=== PATIENT | female | born 1955 | race American Indian/Alaskan Native ===

== ENCOUNTER 2017-06-10 19:41 | Inpatient (IN) | payer OTHER ==
[2017-06-10] MEDS ORDERED: DUONEB *Not for PRN Use IH ONE (20:01)
[2017-06-10] MEDS ORDERED: PROVENTIL IH ONE (20:16)
[2017-06-10] MEDS ORDERED: ATROVENT IH ONE (20:16)
[2017-06-10 20:19] LABS: Basophils % (Auto) 0.4 % (0.0-1.8); Eosinophils % (Auto) 0.7 % (0.0-4.3); Hemoglobin 13.8 gm/dl (10.1-14.3); Mean Corpuscular HGB Conc 33 % (30-34); Mean Corpuscular Hemoglobin 30 pg (28-32); Mean Corpuscular Volume 92 fl (79-97); Platelet Count 263 K/mm3 (140-440); Red Blood Count 4.57 M/mm3 (3.65-5.03); White Blood Count 13.4 K/mm3 (4.5-11.0)
--- NOTE | 2017-06-10 20:24 | Emergency Department Report ---
HPI - General Chief Complaint: Dyspnea/Respdistress Time Seen by Provider: 06/10/17 20:08 - [facility] HPI: Room 23 The patient is a 62-year-old female presented with a chief complaint of shortness of breath. The patient has history of asthma and states for the past 2 days she has had shortness of breath and wheezing. Patient also noticed a cough that is productive of white sputum for the past 2 days. Patient admits to subjective fever and rhinorrhea. Patient denies nausea or vomiting. Patient came to the ED via EMS and was administered Solu-Medrol 125 mg IV and magnesium sulfate 2 g IV prior to arrival Location: Lungs Duration: 2 days Quality: Shortness of breath Severity: Moderate Modifying factors: [see above] Context: [see above] Mode of transportation: [not driving] ED Past Medical Hx - Past Medical History Previous Medical History?: Yes Hx Asthma: Yes - Surgical History Past Surgical History?: No - Family History Family history: no significant - Social History Smoking Status: Current Every Day Smoker (1/2 pack per day) Substance Use Type: None ED Review of Systems ROS: Stated complaint: RL Other details as noted in HPI Constitutional: fever (subjective fever) ENT: other (rhinorrhea) Respiratory: cough, shortness of breath, wheezing Gastrointestinal: denies: nausea, vomiting Physical Exam - Physical Exam Vital Signs: Vital Signs 06/10/17 06/10/17 06/10/17 19:48 20:07 20:08 Temperature 98 F Pulse Rate 114 H 111 H 114 H Pulse Rate [ 111 H Left Lower Lobe ] Respiratory 26 H 24 24 Rate Respiratory 20 Rate [Left Lower Lobe] Blood Pressure 135/82 O2 Sat by Pulse 96 99 99 Oximetry 06/10/17 20:10 Temperature Pulse Rate 114 H Pulse Rate [ Left Lower Lobe ] Respiratory 22 Rate Respiratory Rate [Left Lower Lobe] Blood Pressure O2 Sat by Pulse 98 Oximetry Physical Exam: GENERAL: The patient is well-developed well-nourished female lying on stretcher receiving nebulizer appearing to be in moderate respiratory distress. [] HEENT: Normocephalic. Atraumatic. Extraocular motions are intact. Patient has moist mucous membranes. NECK: Supple. Trachea midline CHEST/LUNGS: Diffuse wheezing HEART/CARDIOVASCULAR: Regular. There is tachycardia. There is no gallop rub or murmur. ABDOMEN: Abdomen is soft, nontender. Patient has normal bowel sounds. There is no abdominal distention. SKIN: There is no rash. There is no diaphoresis. NEURO: The patient is awake, alert, and oriented. The patient is cooperative. The patient has normal speech MUSCULOSKELETAL: There is no evidence of acute injury. ED Course Vital Signs 06/10/17 06/10/17 06/10/17 19:48 20:07 20:08 Temperature 98 F Pulse Rate 114 H 111 H 114 H Pulse Rate [ 111 H Left Lower Lobe ] Respiratory 26 H 24 24 Rate Respiratory 20 Rate [Left Lower Lobe] Blood Pressure 135/82 O2 Sat by Pulse 96 99 99 Oximetry 06/10/17 20:10 Temperature Pulse Rate 114 H Pulse Rate [ Left Lower Lobe ] Respiratory 22 Rate Respiratory Rate [Left Lower Lobe] Blood Pressure O2 Sat by Pulse 98 Oximetry - Reevaluation(s) Reevaluation #1: 06/10/17 20:44 Patient states she feels slightly improved but is still tight. Reevaluation #2: 06/10/17 21:42 Patient still exhibits tight wheezing Reevaluation #3: 06/10/17 22:31 Patient continues to wheeze with increased work of breathing. I will admit the patient to the hospital for further treatment ED Medical Decision Making - Lab Data Result diagrams: 06/10/17 19:57 06/10/17 19:57 Laboratory Tests 06/10/17 06/10/17 19:57 19:57 WBC 13.4 H RBC 4.57 Hgb 13.8 Hct 42.0 MCV 92 MCH 30 MCHC 33 RDW 16.0 H Plt Count 263 Lymph % (Auto) 16.8 [place] % (Auto) 7.2 Eos % (Auto) 0.7 Baso % (Auto) 0.4 Lymph # 2.3 [place]ts # 1.0 H Eos # 0.1 Baso # 0.1 Seg Neutrophils % 74.9 H Seg Neutrophils # 10.0 H Sodium 140 Potassium 3.6 Chloride 98.0 Carbon Dioxide 24 Anion Gap 22 BUN 10 Creatinine 0.3 L Estimated GFR > 60 BUN/Creatinine Ratio 33 Glucose 135 H Calcium 9.0 Troponin T < 0.010 Influenza negative - EKG Data -: EKG Interpreted by Me EKG shows normal: sinus rhythm Rate: tachycardia (108 bpm) - EKG Data When compared to previous EKG there are: previous EKG unavailable Interpretation: nonspecific ST-T wave yee - Radiology Data Radiology results: image reviewed (chest x-ray) interpreted by me: Chest x-ray-no definite focal infiltrates, no pneumothorax - Differential Diagnosis COPD exacerbation, asthma exacerbation, pneumonia, bronchitis Critical care attestation.: If time is entered above; I have spent that time in minutes in the direct care of this critically ill patient, excluding procedure time. ED Disposition Clinical Impression: Shortness of breath, Acute asthma exacerbation, Acute bronchitis Disposition: OP ADMIT IP TO THIS HOSP Is pt being admited?: Yes Does the pt Need Aspirin: No Condition: Fair Instructions: Acute Bronchitis (ED) Referrals: PRIMARY CARE, [Primary Care Provider] - 3-5 Days Time of Disposition: 22:32 (hospitalist paged)
[2017-06-10 20:29] LABS: Anion Gap 22 mmol/L; BUN/Creatinine Ratio 33; Blood Urea Nitrogen 10 mg/dL (7-17); Carbon Dioxide 24 mmol/L (22-30); Glucose 135 mg/dL (65-100); Potassium 3.6 mmol/L (3.6-5.0); Sodium 140 mmol/L (137-145)
[2017-06-10] MEDS ORDERED: ZOFRAN ONE (21:14)
--- NOTE | 2017-06-10 21:37 | XRay Report ---
FINAL REPORT EXAM: XR CHEST 1V AP HISTORY: Shortness of breath TECHNIQUE: AP portable view of the chest PRIORS: None. FINDINGS: Lines, tubes, and devices: N/A Lungs and pleura: Trachea is normal in position. Lungs are clear of infiltrate, pleural effusion, vascular congestion, or pneumothorax. Cardiomediastinal silhouette: Cardiac and mediastinal silhouettes are unremarkable. Calcification of the aorta is seen. Other: Bony structures are intact. IMPRESSION: No acute cardiopulmonary process seen.
[2017-06-10] MEDS ORDERED: XOPENEX IH ONE (22:31)
[2017-06-10] MEDS ORDERED: DULCOLAX PR PRN (23:22)
[2017-06-10] MEDS ORDERED: MILK OF MAGNESIA PO PRN (23:22)
[2017-06-10] MEDS ORDERED: ZOFRAN IV PRN (23:22)
--- NOTE | 2017-06-10 23:24 | History and Physical Report ---
History of Present Illness Date of examination: 06/10/17 History of present illness: 62-year-old woman with a history of asthma comes to the emergency room complaining of shortness of breath and cough productive of white phlegm for 2 days. She has been using nebulizer treatments without much improvement Review Of Systems: Constitutional: no weight loss Ears, eyes, nose, mouth and throat: no nasal congestion, no nasal discharge, no sinus pressure, blurry vision, diplopia Neck: No neck pain or rigidity. Cardiovascular: chest pain, orthopnea, palpitations Respiratory: +shortness of breath, cough Gastrointestinal: no abdominal pain, hematochezia Genitourinary : no dysuria, frequency , hematuria Musculoskeletal: no muscle ache Integumentary: no rash, no pruritis Neurological: no parathesias, focal weakness Endocrine: no cold or heat intolerance, no polyuria or polydipsia Hematologic/Lymphatic: no easy bruising, no easy bleeding, no gland swelling Allergic/Immunologic: no urticaria, no angioedema. PAST MEDICAL HISTORY:asthma PAST SURGICAL HISTORY:none FAMILY HISTORY:asthma SOCIAL HISTORY: Smoked 1 pack a day, no alcohol or drug Medications and Allergies Allergies Allergy/AdvReac Type Severity Reaction Status Date / Time No Known Allergies Allergy Unverified 06/10/17 19:46 Exam - Physical Exam Narrative exam: Gen. appearance: Patient lying in bed in no acute distress HEENT: Normocephalic/atraumatic, pupils equal round reactive to light, extra alkaline movement intact, no scleral icterus, no JVD or thyromegaly or nodule, neck is supple, mucous membrane moist, no erythema or exudate Heart: S1-S2, regular rate and rhythm Lungs: wheezing bilateral breathing comfortable Abdomen: Positive bowel sounds, nontender, nondistended, no organomegaly Extremities: No edema, cyanosis, clubbing Neuro:: Oriented 3 , cranial nerves II-12 intact, speech, motor intact Skin: No rash, nodules, warm dry - Constitutional Vitals: Temp Pulse Resp BP Pulse Ox 98 F 118 H 20 135/82 98 06/10/17 19:48 06/10/17 22:50 06/10/17 22:50 06/10/17 19:48 06/10/17 20:14 Results - Labs CBC & Chem 7: 06/10/17 19:57 06/10/17 19:57 Labs: Abnormal lab results 06/10/17 06/10/17 Range/Units 19:57 19:57 WBC 13.4 H (4.5-11.0) K/mm3 RDW 16.0 H (13.2-15.2) % [place] # 1.0 H (0.0-0.8) K/mm3 Seg Neutrophils % 74.9 H (40.0-70.0) % Seg Neutrophils # 10.0 H (1.8-7.7) K/mm3 Creatinine 0.3 L (0.7-1.2) mg/dL Glucose 135 H (65-100) mg/dL - Imaging and Cardiology Chest x-ray: image reviewed Assessment and Plan Assessment Asthma exacerbation, acute Plan Admit to medicine Start IV steroids, nebulizer treatments, DVT prophylaxis
[2017-06-11] MEDS: TYLENOL PO PRN ×3 (02:02→19:44)
[2017-06-11] MEDS: DUONEB *Not for PRN Use IH SCH ×4 (02:16→20:02)
[2017-06-11 04:54] LABS: Hematocrit 40.5 % (30.3-42.9); Hemoglobin 13.3 gm/dl (10.1-14.3); Mean Corpuscular HGB Conc 33 % (30-34); Mean Corpuscular Hemoglobin 30 pg (28-32); Mean Corpuscular Volume 91 fl (79-97); Platelet Count 250 K/mm3 (140-440); Red Blood Count 4.43 M/mm3 (3.65-5.03); Red Cell Distribution Width 15.3 % (13.2-15.2); White Blood Count 8.4 K/mm3 (4.5-11.0)
[2017-06-11 05:14] LABS: Anion Gap 20 mmol/L; BUN/Creatinine Ratio 25; Blood Urea Nitrogen 10 mg/dL (7-17); Carbon Dioxide 27 mmol/L (22-30); Chloride 100.1 mmol/L (98-107); Glucose 164 mg/dL (65-100); Potassium 3.7 mmol/L (3.6-5.0); Sodium 143 mmol/L (137-145)
[2017-06-11 06:31] LABS: Basophils % (Manual) 0 % (0.0-1.8); Blastocytes % (Manual) 0 %; Eosinophils % (Manual) 0 % (0.0-4.3); Total Cells Counted Percent 0
[2017-06-11 06:32] LABS: Anisocytosis 1+; Diff Status Complete; Giant Platelets Few
[2017-06-11] MEDS: LOVENOX SUB-Q SCH (09:56)
--- NOTE | 2017-06-11 10:30 | Progress Note ---
Assessment and Plan Assessment and plan: Patient is 62-year-old woman with history of asthma and tobacco dependency presents with shortness of breath and cough. -Acute hypoxic respiratory failure on 2 L oxygen which is new: Wean off oxygen -Acute asthma exacerbation without a formal diagnosis of COPD but possibility: Treat with IV steroids, nebs, antibiotics -Tobacco dependency: Counseling done History Interval history: Patient seen and examined. Follow up on sob which is still present. she is on 2 liters of o2 which is new for her. pulse ox at rest with o2 only 91% Hospitalist Physical - Physical exam Narrative exam: GEN: Thin frail BMI 17 NAD, AWAKE, ALERT, ORIENTATED x 3 HEENT: NCAT, EOMI, PERRL, OP Clear NECK: supple, no adenopathy, no thyromegaly, no JVD CVS/HEART: RRR, NORMAL S1S2, NO JVD, pulses present bilaterally CHEST/LUNGS: Bilateral rhonchi, Symmetrical chest expansion, severely reduced air entry bilaterally GI/Abdomen: soft, NTND, good bowel sounds, no guarding or rebound /Bladder: no suprapubic tenderness, no CVA or paraspinal tenderness EXT/Skin: no c/c/e, no obvious rash MSK: FROM x 4 Neuro: CN 2-12 grossly intact, no new focal deficits Psych: calm - Constitutional Vitals: Temp Pulse Resp BP Pulse Ox 98.0 F 85 16 97/55 97 06/11/17 08:38 06/11/17 08:38 06/11/17 08:38 06/11/17 08:38 06/11/17 08:38 Results - Labs CBC & Chem 7: 06/11/17 04:33 06/11/17 04:33 Labs: Laboratory Last Values WBC 8.4 K/mm3 (4.5-11.0) 06/11/17 04:33 RBC 4.43 M/mm3 (3.65-5.03) 06/11/17 04:33 Hgb 13.3 gm/dl (10.1-14.3) 06/11/17 04:33 Hct 40.5 % (30.3-42.9) 06/11/17 04:33 MCV 91 fl (79-97) 06/11/17 04:33 MCH 30 pg (28-32) 06/11/17 04:33 MCHC 33 % (30-34) 06/11/17 04:33 RDW 15.3 % (13.2-15.2) H 06/11/17 04:33 Plt Count 250 K/mm3 (140-440) 06/11/17 04:33 Lymph % (Auto) 16.8 % (13.4-35.0) 06/10/17 19:57 [place] % (Auto) 7.2 % (0.0-7.3) 06/10/17 19:57 Eos % (Auto) 0.7 % (0.0-4.3) 06/10/17 19:57 Baso % (Auto) 0.4 % (0.0-1.8) 06/10/17 19:57 Lymph # 2.3 K/mm3 (1.2-5.4) 06/10/17 19:57 [place] # 1.0 K/mm3 (0.0-0.8) H 06/10/17 19:57 Eos # 0.1 K/mm3 (0.0-0.4) 06/10/17 19:57 Baso # 0.1 K/mm3 (0.0-0.1) 06/10/17 19:57 Add Manual Diff Complete 06/11/17 04:33 Total Counted 100 06/11/17 04:33 Seg Neutrophils % Railway Signal Technician 06/11/17 04:33 Seg Neuts % (Manual) 89.0 % (40.0-70.0) H 06/11/17 04:33 Band Neutrophils % 8.0 % 06/11/17 04:33 Lymphocytes % (Manual) 3.0 % (13.4-35.0) L 06/11/17 04:33 Reactive Lymphs % (Man) 0 % 06/11/17 04:33 Monocytes % (Manual) 0 % (0.0-7.3) 06/11/17 04:33 Eosinophils % (Manual) 0 % (0.0-4.3) 06/11/17 04:33 Basophils % (Manual) 0 % (0.0-1.8) 06/11/17 04:33 Metamyelocytes % 0 % 06/11/17 04:33 Myelocytes % 0 % 06/11/17 04:33 Promyelocytes % 0 % 06/11/17 04:33 Blast Cells % 0 % 06/11/17 04:33 Nucleated RBC % Not Reportable 06/11/17 04:33 Seg Neutrophils # 10.0 K/mm3 (1.8-7.7) H 06/10/17 19:57 Seg Neutrophils # Man 7.5 K/mm3 (1.8-7.7) 06/11/17 04:33 Band Neutrophils # 0.7 K/mm3 06/11/17 04:33 Lymphocytes # (Manual) 0.3 K/mm3 (1.2-5.4) L 06/11/17 04:33 Abs React Lymphs (Man) 0.0 K/mm3 06/11/17 04:33 Monocytes # (Manual) 0.0 K/mm3 (0.0-0.8) 06/11/17 04:33 Eosinophils # (Manual) 0.0 K/mm3 (0.0-0.4) 06/11/17 04:33 Basophils # (Manual) 0.0 K/mm3 (0.0-0.1) 06/11/17 04:33 Metamyelocytes # 0.0 K/mm3 06/11/17 04:33 Myelocytes # 0.0 K/mm3 06/11/17 04:33 Promyelocytes # 0.0 K/mm3 06/11/17 04:33 Blast Cells # 0.0 K/mm3 06/11/17 04:33 WBC Morphology Not Reportable 06/11/17 04:33 Hypersegmented Neuts Not Reportable 06/11/17 04:33 Hyposegmented Neuts Not Reportable 06/11/17 04:33 Hypogranular Neuts Not Reportable 06/11/17 04:33 Smudge Cells Not Reportable 06/11/17 04:33 Toxic Granulation Not Reportable 06/11/17 04:33 Toxic Vacuolation Not Reportable 06/11/17 04:33 Dohle Bodies Not Reportable 06/11/17 04:33 Pelger-Huet Anomaly Not Reportable 06/11/17 04:33 Opal Rods Not Reportable 06/11/17 04:33 Platelet Estimate Appears normal 06/11/17 04:33 Clumped Platelets Not Reportable 06/11/17 04:33 Plt Clumps, EDTA Not Reportable 06/11/17 04:33 Large Platelets Not Reportable 06/11/17 04:33 Giant Platelets Few 06/11/17 04:33 Platelet Satelliting Not Reportable 06/11/17 04:33 Plt Morphology Comment Not Reportable 06/11/17 04:33 RBC Morphology Not Reportable 06/11/17 04:33 Dimorphic RBCs Not Reportable 06/11/17 04:33 Polychromasia Not Reportable 06/11/17 04:33 Hypochromasia Not Reportable 06/11/17 04:33 Poikilocytosis Not Reportable 06/11/17 04:33 Anisocytosis 1+ 06/11/17 04:33 Microcytosis Not Reportable 06/11/17 04:33 Macrocytosis Not Reportable 06/11/17 04:33 Spherocytes Not Reportable 06/11/17 04:33 Pappenheimer Bodies Not Reportable 06/11/17 04:33 Sickle Cells Not Reportable 06/11/17 04:33 Target Cells Not Reportable 06/11/17 04:33 Tear Drop Cells Not Reportable 06/11/17 04:33 Ovalocytes Not Reportable 06/11/17 04:33 Helmet Cells Not Reportable 06/11/17 04:33 [place] Bodies Not Reportable 06/11/17 04:33 [place] Rings Not Reportable 06/11/17 04:33 [place] Cells Not Reportable 06/11/17 04:33 Bite Cells Not Reportable 06/11/17 04:33 Crenated Cell Not Reportable 06/11/17 04:33 Elliptocytes Not Reportable 06/11/17 04:33 Acanthocytes (Spur) Not Reportable 06/11/17 04:33 Rouleaux Not Reportable 06/11/17 04:33 Hemoglobin C Crystals Not Reportable 06/11/17 04:33 Schistocytes Not Reportable 06/11/17 04:33 Malaria parasites Not Reportable 06/11/17 04:33 Joel Bodies Not Reportable 06/11/17 04:33 Hem Pathologist Commnt No 06/11/17 04:33 Sodium 143 mmol/L (137-145) 06/11/17 04:33 Potassium 3.7 mmol/L (3.6-5.0) 06/11/17 04:33 Chloride 100.1 mmol/L (98-107) 06/11/17 04:33 Carbon Dioxide 27 mmol/L (22-30) 06/11/17 04:33 Anion Gap 20 mmol/L 06/11/17 04:33 BUN 10 mg/dL (7-17) 06/11/17 04:33 Creatinine 0.4 mg/dL (0.7-1.2) L 06/11/17 04:33 Estimated GFR > 60 ml/min 06/11/17 04:33 BUN/Creatinine Ratio 25 % 06/11/17 04:33 Glucose 164 mg/dL (65-100) H 06/11/17 04:33 Calcium 9.0 mg/dL (8.4-10.2) 06/11/17 04:33 Troponin T < 0.010 ng/mL (0.00-0.029) 06/10/17 19:57
[2017-06-12] MEDS: DUONEB *Not for PRN Use IH SCH ×4 (01:31→20:14)
[2017-06-12 05:26] LABS: Hematocrit 37.5 % (30.3-42.9); Hemoglobin 12.6 gm/dl (10.1-14.3); Mean Corpuscular HGB Conc 34 % (30-34); Mean Corpuscular Hemoglobin 31 pg (28-32); Mean Corpuscular Volume 91 fl (79-97); Platelet Count 255 K/mm3 (140-440); Red Blood Count 4.11 M/mm3 (3.65-5.03); Red Cell Distribution Width 15.5 % (13.2-15.2); White Blood Count 18.6 K/mm3 (4.5-11.0)
[2017-06-12 05:51] LABS: Alanine Aminotransferase 14 units/L (7-56); Albumin/Globulin Ratio 1.4 %; Alkaline Phosphatase 70 units/L (35-129); Anion Gap 16 mmol/L; BUN/Creatinine Ratio 43; Bilirubin,Total < 0.20 mg/dL (0.1-1.2); Blood Urea Nitrogen 17 mg/dL (7-17); Calcium 9.3 mg/dL (8.4-10.2); Carbon Dioxide 28 mmol/L (22-30); Chloride 104.2 mmol/L (98-107); Glucose 139 mg/dL (65-100); Potassium 3.6 mmol/L (3.6-5.0); Sodium 145 mmol/L (137-145); Total Protein 6.8 g/dL (6.3-8.2)
[2017-06-12] MEDS: LOVENOX SUB-Q SCH (11:37)
--- NOTE | 2017-06-12 11:52 | Progress Note ---
Assessment and Plan Assessment and plan: Patient is 62-year-old woman with history of asthma and tobacco dependency presents with shortness of breath and cough. -Acute hypoxic respiratory failure on 2 L oxygen which is new: Wean off oxygen if possible -Acute asthma exacerbation without a formal diagnosis of COPD but possibility: Treat with IV steroids, nebs, antibiotics -Tobacco dependency: Counseling done off o2 at rest but needs pulse ox with activity. Patient tearful to use O2 because she may lose her job; so she really hesitant on checking pulse ox/O2 with activity. History Interval history: Patient seen and examined. Follow up on sob which is still present. she is on 2 liters of o2 which is new for her. pulse ox at rest with o2 only 91% Hospitalist Physical - Physical exam Narrative exam: GEN: Thin frail BMI 17 NAD, AWAKE, ALERT, ORIENTATED x 3 HEENT: NCAT, EOMI, PERRL, OP Clear NECK: supple, no adenopathy, no thyromegaly, no JVD CVS/HEART: RRR, NORMAL S1S2, NO JVD, pulses present bilaterally CHEST/LUNGS: Bilateral rhonchi, Symmetrical chest expansion, severely reduced air entry bilaterally GI/Abdomen: soft, NTND, good bowel sounds, no guarding or rebound /Bladder: no suprapubic tenderness, no CVA or paraspinal tenderness EXT/Skin: no c/c/e, no obvious rash MSK: FROM x 4 Neuro: CN 2-12 grossly intact, no new focal deficits Psych: calm - Constitutional Vitals: Temp Pulse Resp BP Pulse Ox 97.9 F 95 H 18 99/68 92 06/12/17 07:41 06/12/17 07:45 06/12/17 07:45 06/12/17 07:41 06/12/17 10:00 Results - Labs CBC & Chem 7: 06/12/17 05:07 06/12/17 05:07 Labs: Laboratory Last Values WBC 18.6 K/mm3 (4.5-11.0) H 06/12/17 05:07 RBC 4.11 M/mm3 (3.65-5.03) 06/12/17 05:07 Hgb 12.6 gm/dl (10.1-14.3) 06/12/17 05:07 Hct 37.5 % (30.3-42.9) 06/12/17 05:07 MCV 91 fl (79-97) 06/12/17 05:07 MCH 31 pg (28-32) 06/12/17 05:07 MCHC 34 % (30-34) 06/12/17 05:07 RDW 15.5 % (13.2-15.2) H 06/12/17 05:07 Plt Count 255 K/mm3 (140-440) 06/12/17 05:07 Lymph % (Auto) 16.8 % (13.4-35.0) 06/10/17 19:57 [place] % (Auto) 7.2 % (0.0-7.3) 06/10/17 19:57 Eos % (Auto) 0.7 % (0.0-4.3) 06/10/17 19:57 Baso % (Auto) 0.4 % (0.0-1.8) 06/10/17 19:57 Lymph # 2.3 K/mm3 (1.2-5.4) 06/10/17 19:57 [place] # 1.0 K/mm3 (0.0-0.8) H 06/10/17 19:57 Eos # 0.1 K/mm3 (0.0-0.4) 06/10/17 19:57 Baso # 0.1 K/mm3 (0.0-0.1) 06/10/17 19:57 Add Manual Diff Complete 06/11/17 04:33 Total Counted 100 06/11/17 04:33 Seg Neutrophils % Medical And Health Services Manager 06/11/17 04:33 Seg Neuts % (Manual) 89.0 % (40.0-70.0) H 06/11/17 04:33 Band Neutrophils % 8.0 % 06/11/17 04:33 Lymphocytes % (Manual) 3.0 % (13.4-35.0) L 06/11/17 04:33 Reactive Lymphs % (Man) 0 % 06/11/17 04:33 Monocytes % (Manual) 0 % (0.0-7.3) 06/11/17 04:33 Eosinophils % (Manual) 0 % (0.0-4.3) 06/11/17 04:33 Basophils % (Manual) 0 % (0.0-1.8) 06/11/17 04:33 Metamyelocytes % 0 % 06/11/17 04:33 Myelocytes % 0 % 06/11/17 04:33 Promyelocytes % 0 % 06/11/17 04:33 Blast Cells % 0 % 06/11/17 04:33 Nucleated RBC % Not Reportable 06/11/17 04:33 Seg Neutrophils # 10.0 K/mm3 (1.8-7.7) H 06/10/17 19:57 Seg Neutrophils # Man 7.5 K/mm3 (1.8-7.7) 06/11/17 04:33 Band Neutrophils # 0.7 K/mm3 06/11/17 04:33 Lymphocytes # (Manual) 0.3 K/mm3 (1.2-5.4) L 06/11/17 04:33 Abs React Lymphs (Man) 0.0 K/mm3 06/11/17 04:33 Monocytes # (Manual) 0.0 K/mm3 (0.0-0.8) 06/11/17 04:33 Eosinophils # (Manual) 0.0 K/mm3 (0.0-0.4) 06/11/17 04:33 Basophils # (Manual) 0.0 K/mm3 (0.0-0.1) 06/11/17 04:33 Metamyelocytes # 0.0 K/mm3 06/11/17 04:33 Myelocytes # 0.0 K/mm3 06/11/17 04:33 Promyelocytes # 0.0 K/mm3 06/11/17 04:33 Blast Cells # 0.0 K/mm3 06/11/17 04:33 WBC Morphology Not Reportable 06/11/17 04:33 Hypersegmented Neuts Not Reportable 06/11/17 04:33 Hyposegmented Neuts Not Reportable 06/11/17 04:33 Hypogranular Neuts Not Reportable 06/11/17 04:33 Smudge Cells Not Reportable 06/11/17 04:33 Toxic Granulation Not Reportable 06/11/17 04:33 Toxic Vacuolation Not Reportable 06/11/17 04:33 Dohle Bodies Not Reportable 06/11/17 04:33 Pelger-Huet Anomaly Not Reportable 06/11/17 04:33 Opal Rods Not Reportable 06/11/17 04:33 Platelet Estimate Appears normal 06/11/17 04:33 Clumped Platelets Not Reportable 06/11/17 04:33 Plt Clumps, EDTA Not Reportable 06/11/17 04:33 Large Platelets Not Reportable 06/11/17 04:33 Giant Platelets Few 06/11/17 04:33 Platelet Satelliting Not Reportable 06/11/17 04:33 Plt Morphology Comment Not Reportable 06/11/17 04:33 RBC Morphology Not Reportable 06/11/17 04:33 Dimorphic RBCs Not Reportable 06/11/17 04:33 Polychromasia Not Reportable 06/11/17 04:33 Hypochromasia Not Reportable 06/11/17 04:33 Poikilocytosis Not Reportable 06/11/17 04:33 Anisocytosis 1+ 06/11/17 04:33 Microcytosis Not Reportable 06/11/17 04:33 Macrocytosis Not Reportable 06/11/17 04:33 Spherocytes Not Reportable 06/11/17 04:33 Pappenheimer Bodies Not Reportable 06/11/17 04:33 Sickle Cells Not Reportable 06/11/17 04:33 Target Cells Not Reportable 06/11/17 04:33 Tear Drop Cells Not Reportable 06/11/17 04:33 Ovalocytes Not Reportable 06/11/17 04:33 Helmet Cells Not Reportable 06/11/17 04:33 [place] Bodies Not Reportable 06/11/17 04:33 [place] Rings Not Reportable 06/11/17 04:33 [place] Cells Not Reportable 06/11/17 04:33 Bite Cells Not Reportable 06/11/17 04:33 Crenated Cell Not Reportable 06/11/17 04:33 Elliptocytes Not Reportable 06/11/17 04:33 Acanthocytes (Spur) Not Reportable 06/11/17 04:33 Rouleaux Not Reportable 06/11/17 04:33 Hemoglobin C Crystals Not Reportable 06/11/17 04:33 Schistocytes Not Reportable 06/11/17 04:33 Malaria parasites Not Reportable 06/11/17 04:33 Joel Bodies Not Reportable 06/11/17 04:33 Hem Pathologist Commnt No 06/11/17 04:33 Sodium 145 mmol/L (137-145) 06/12/17 05:07 Potassium 3.6 mmol/L (3.6-5.0) 06/12/17 05:07 Chloride 104.2 mmol/L (98-107) 06/12/17 05:07 Carbon Dioxide 28 mmol/L (22-30) 06/12/17 05:07 Anion Gap 16 mmol/L 06/12/17 05:07 BUN 17 mg/dL (7-17) 06/12/17 05:07 Creatinine 0.4 mg/dL (0.7-1.2) L 06/12/17 05:07 Estimated GFR > 60 ml/min 06/12/17 05:07 BUN/Creatinine Ratio 43 % 06/12/17 05:07 Glucose 139 mg/dL (65-100) H 06/12/17 05:07 Calcium 9.3 mg/dL (8.4-10.2) 06/12/17 05:07 Total Bilirubin < 0.20 mg/dL (0.1-1.2) 06/12/17 05:07 AST 18 units/L (5-40) 06/12/17 05:07 ALT 14 units/L (7-56) 06/12/17 05:07 Alkaline Phosphatase 70 units/L (35-129) 06/12/17 05:07 Troponin T < 0.010 ng/mL (0.00-0.029) 06/10/17 19:57 Total Protein 6.8 g/dL (6.3-8.2) 06/12/17 05:07 Albumin 4.0 g/dL (3.9-5) 06/12/17 05:07 Albumin/Globulin Ratio 1.4 % 06/12/17 05:07
[2017-06-13] MEDS: DUONEB *Not for PRN Use IH SCH ×3 (02:18→13:29)
[2017-06-13 08:52] VITALS: BP 116/75
[2017-06-13] MEDS: LOVENOX SUB-Q SCH (09:56)
--- NOTE | 2017-06-13 12:43 | Discharge Summary ---
Providers - Providers Date of Admission: 06/10/17 23:22 Date of discharge: 06/13/17 Attending physician: WILL HOLM 06/11/17 10:31 Consult to Dietitian/Nutrition [CONS] Routine Physician Instructions: Reason For Exam: Reason for Consult: Malnutrition Primary care physician: QUITLINE COUNSELOR Hospitalization Condition: Stable Hospital course: Patient is 62-year-old woman with history of asthma and tobacco dependency presents with shortness of breath and cough. -Acute hypoxic respiratory failure on 2 L oxygen which is new: Weaned off oxygen -Acute asthma exacerbation without a formal diagnosis of COPD but possibility: Treat with IV steroids, nebs, start abx prior to discharge -Tobacco dependency: Counseling done Disposition: DC-01 TO HOME OR SELFCARE Time spent for discharge: 36 minutes Core Measure Documentation - Palliative Care Palliative Care/ Comfort Measures: Not Applicable - Core Measures Any of the following diagnoses?: none - VTE Discharge Requirements Deep Vein Thrombosis/Pulmonary Embolism Present on Admission: No Has pt received <5 days of overlap therapy or INR<2.0: No Anticoagulant overlap therapy prescribed at discharge: No Contraindication No Overlap Therapy order at DC: Not Indicated Exam - Physical Exam Narrative exam: GEN: Thin frail BMI 17 NAD, AWAKE, ALERT, ORIENTATED x 3 HEENT: NCAT, EOMI, PERRL, OP Clear NECK: supple, no adenopathy, no thyromegaly, no JVD CVS/HEART: RRR, NORMAL S1S2, NO JVD, pulses present bilaterally CHEST/LUNGS: Bilateral rhonchi, Symmetrical chest expansion, severely reduced air entry bilaterally GI/Abdomen: soft, NTND, good bowel sounds, no guarding or rebound /Bladder: no suprapubic tenderness, no CVA or paraspinal tenderness EXT/Skin: no c/c/e, no obvious rash MSK: FROM x 4 Neuro: CN 2-12 grossly intact, no new focal deficits Psych: calm - Constitutional Vitals: Temp Pulse Resp BP Pulse Ox 98.2 F 76 18 116/75 89 06/13/17 07:38 06/13/17 07:46 06/13/17 07:46 06/13/17 07:38 06/13/17 07:38 Plan Activity: other (no strenous activity until cleared by pcp) Diet: regular Special Instructions: smoking cessation Durable Medical Equipment Needed Upon Discharge: Nebulizer Additional Instructions: The first available appointment to see the shipping hand, Dr. Spence to test for COPD. If you are unable to afford medication, make sure you get your antibiotic, steriods and albuterol. Follow up with: PRIMARY CARE, [Primary Care Provider] - 3-5 Days NEGRITA SPENCE MD [Staff Physician] - 7 Days Prescriptions: ALBUTEROL Inhaler [ProAir HFA Inhaler] 2 puff IH QID PRN #1 unit PRN Reason: Shortness Of Breath Arformoterol Nebu [Brovana Nebu] 15 mcg IH Q12HR #7 day Budesonide [Pulmicort Respules] 0.5 mg IH Q12HR #7 day Ipratropium/Albuterol Sulfate [DUONEB *Not for PRN Use*] 1 ampul IH Q6HRT PRN # 30 day PRN Reason: Shortness Of Breath Levofloxacin [Levaquin TAB] 750 mg PO Q24HR #6 day predniSONE [Deltasone] 1 dose PO QDAY #20 day
[2017-06-13] MEDS ORDERED: LEVAQUIN PO SCH (13:00)
== END 2017-06-13 16:00 | disposition home or self-care (01) | DRG 189 ==
LOC: ED 19:41 → 3A 23:22
PROVIDERS: ADMIT Internal Medicine; ATTEND Internal Medicine
DX: J96.01 Acute respiratory failure with hypoxia (principal); J45.901 Unspecified asthma with (acute) exacerbation; F17.200 Nicotine dependence, unspecified, uncomplicated; J20.9 Acute bronchitis, unspecified; Z82.5 Family history of asthma and other chronic lower respiratory diseases
CPT/HCPCS: 36415; 71010; 80048; 80053; 84484; 85007; 85025; 85027; 87400; 93005; 93010; 94640; 94760; 99406; J1650; J2405; J2920; J2930

== ENCOUNTER 2019-01-31 20:24 | Emergency (ER) | payer SELFPAY ==
--- NOTE | 2019-01-31 20:39 | Emergency Department Report ---
Blank Doc - Documentation Documentation: This is a 63-year-old female that presents with chest pain and SOB. HX of COPD. This initial assessment/diagnostic orders/clinical plan/treatment(s) is/are subject to change based on patient's health status, clinical progression and re- assessment by fellow clinical providers in the ED. Further treatment and workup at subsequent clinical providers discretion. Patient/guardians urged not to elope from the ED as their condition may be serious if not clinically assessed and managed. Initial orders include: 1- Patient sent to MAIN ED for further evaluation and treatment 2- labs 3- CXR 4- EKG
[2019-01-31 21:22] LABS: Basophils # (Auto) 0.1 K/mm3 (0.0-0.1); Basophils % (Auto) 0.9 % (0.0-1.8); Eosinophils # (Auto) 0.5 K/mm3 (0.0-0.4); Hematocrit 39.3 % (30.3-42.9); Hemoglobin 13.6 gm/dl (10.1-14.3); Lymphocytes % (Auto) 22.3 % (13.4-35.0); Mean Corpuscular HGB Conc 35 % (30-34); Mean Corpuscular Volume 86 fl (79-97); Monocytes # (Auto) 0.6 K/mm3 (0.0-0.8); Platelet Count 331 K/mm3 (140-440); Red Blood Count 4.57 M/mm3 (3.65-5.03); Red Cell Distribution Width 14.9 % (13.2-15.2)
[2019-01-31 21:33] LABS: INR 1.08 (0.87-1.13)
[2019-01-31 21:34] LABS: Partial Thromboplastin Time 32.1 Sec. (24.2-36.6)
[2019-01-31] MEDS ORDERED: SOLU-Medrol IV ONE (21:41)
[2019-01-31] MEDS ORDERED: ATROVENT IH ONE (21:41)
[2019-01-31] MEDS ORDERED: PROVENTIL IH ONE (21:41)
--- NOTE | 2019-01-31 21:42 | XRay Report ---
CHEST PA AND LATERAL VIEWS INDICATION: Chest Pain. COMPARISON: None FINDINGS: Support devices: None Heart: Normal Lungs/Pleura: Lungs are hyperinflated but clear of acute disease. No pleural fluid IMPRESSION: 1. Emphysema but no acute superimposed disease. Signer Name: Jose Flores MD Signed: 01/31/2019 9:37 PM Workstation Name: [id number]
[2019-01-31 21:44] LABS: BUN/Creatinine Ratio 30; Blood Urea Nitrogen 12 mg/dL (7-17); Calcium 9.3 mg/dL (8.4-10.2); Hemolysis Index 6
--- NOTE | 2019-02-01 00:20 | Emergency Department Report ---
ED Shortness of Breath HPI - General Chief Complaint: Dyspnea/Respdistress Stated Complaint: COPD/CHEST PAIN/SOB Time Seen by Provider: 01/31/19 20:38 Source: patient Mode of arrival: Ambulatory Limitations: No Limitations - History of Present Illness Initial Comments: Patient is a 63-year-old Female with past history of COPD who is here secondary to some difficulty breathing. Patient states that she's had a mild cough and congestion for the last week which worsened today. Patient states that she's had some chest discomfort. Patient states chest feels tight and she is also wheezing. Patient has a albuterol inhalers had to increase the frequency of using this medication. Patient denies any fevers chills nausea vomiting diarrhea at this time. - Related Data Previous Rx's Medication Instructions Recorded Last Taken Type ALBUTEROL Inhaler (OR & NICU) 2 puff IH QID PRN #1 unit 06/13/17 Unknown Rx [ProAir HFA Inhaler] Acetaminophen [Acetaminophen TAB] 325 mg PO Q4H PRN #30 tablet 06/13/17 Unknown Rx Arformoterol Nebu [Brovana Nebu] 15 mcg IH Q12HR #7 day 06/13/17 Unknown Rx Budesonide [Pulmicort Respules] 0.5 mg IH Q12HR #7 day 06/13/17 Unknown Rx Ipratropium/Albuterol Sulfate 1 ampul IH Q6HRT PRN #30 day 06/13/17 Unknown Rx [DUONEB *Not for PRN Use*] levoFLOXacin [Levaquin TAB] 750 mg PO Q24HR #6 day 06/13/17 Unknown Rx predniSONE [Deltasone] 1 dose PO QDAY #20 day 06/13/17 Unknown Rx ALBUTEROL NEB's [Proventil 0.083% 2.5 mg IH TID PRN #20 neb 02/01/19 Unknown Rx NEBS] Azithromycin [Zithromax Z-ARSEN] 250 mg PO DAILY #6 tablet 02/01/19 Unknown Rx Benzonatate [Tessalon Perles] 100 mg PO Q8HR #10 capsule 02/01/19 Unknown Rx predniSONE [Deltasone] 10 mg PO .TAPER #21 tab 02/01/19 Unknown Rx Allergies Allergy/AdvReac Type Severity Reaction Status Date / Time No Known Allergies Allergy Verified 01/31/19 20:27 ED Review of Systems ROS: Stated complaint: COPD/CHEST PAIN/SOB Other details as noted in HPI Comment: All other systems reviewed and negative ED Past Medical Hx - Past Medical History Previous Medical History?: Yes Hx Congestive Heart Failure: No Hx Diabetes: No Hx Asthma: Yes Hx COPD: Yes - Surgical History Past Surgical History?: No - Social History Smoking Status: Former Smoker - Medications Home Medications: Home Medications Medication Instructions Recorded Confirmed Last Taken Type ALBUTEROL Inhaler (OR & NICU) 2 puff IH QID PRN #1 unit 06/13/17 Unknown Rx [ProAir HFA Inhaler] Acetaminophen [Acetaminophen TAB] 325 mg PO Q4H PRN #30 tablet 06/13/17 Unknown Rx Arformoterol Nebu [Brovana Nebu] 15 mcg IH Q12HR #7 day 06/13/17 Unknown Rx Budesonide [Pulmicort Respules] 0.5 mg IH Q12HR #7 day 06/13/17 Unknown Rx Ipratropium/Albuterol Sulfate 1 ampul IH Q6HRT PRN #30 day 06/13/17 Unknown Rx [DUONEB *Not for PRN Use*] levoFLOXacin [Levaquin TAB] 750 mg PO Q24HR #6 day 06/13/17 Unknown Rx predniSONE [Deltasone] 1 dose PO QDAY #20 day 06/13/17 Unknown Rx ALBUTEROL NEB's [Proventil 0.083% 2.5 mg IH TID PRN #20 neb 02/01/19 Unknown Rx NEBS] Azithromycin [Zithromax Z-ARSEN] 250 mg PO DAILY #6 tablet 02/01/19 Unknown Rx Benzonatate [Tessalon Perles] 100 mg PO Q8HR #10 capsule 02/01/19 Unknown Rx predniSONE [Deltasone] 10 mg PO .TAPER #21 tab 02/01/19 Unknown Rx ED Physical Exam - General Limitations: No Limitations General appearance: alert, in no apparent distress - Head Head exam: Present: atraumatic, normocephalic - Eye Eye exam: Present: normal appearance - ENT ENT exam: Present: mucous membranes moist - Neck Neck exam: Present: normal inspection - Respiratory Respiratory exam: Present: normal lung sounds bilaterally, wheezes, decreased breath sounds, prolonged expiratory. Absent: respiratory distress, rales, rhonchi, stridor - Cardiovascular Cardiovascular Exam: Present: normal rhythm, tachycardia. Absent: systolic murmur, diastolic murmur, rubs, gallop - GI/Abdominal GI/Abdominal exam: Present: soft, normal bowel sounds. Absent: distended, tenderness, guarding, rebound - Extremities Exam Extremities exam: Present: normal inspection - Back Exam Back exam: Present: normal inspection - Neurological Exam Neurological exam: Present: alert, oriented X3 - Psychiatric Psychiatric exam: Present: normal affect, normal mood - Skin Skin exam: Present: warm, dry, intact, normal color. Absent: rash ED Course Vital Signs 01/31/19 01/31/19 01/31/19 20:32 21:30 22:55 Temperature 98.1 F Pulse Rate 125 H 116 H Pulse Rate [ 88 Bilateral Throughout] Respiratory 14 Rate Respiratory 20 Rate [Bilateral Throughout] Blood Pressure 168/90 104/77 O2 Sat by Pulse 97 94 Oximetry ED Medical Decision Making - Lab Data Result diagrams: 01/31/19 20:43 01/31/19 20:43 - Radiology Data [facility] [address] [place] [address] XRay Report Signed Patient: RM SCHUMACHER MR#: [id number] : 1955 Acct:[id number] Age/Sex: 63 / F ADM Date: 01/31/19 Loc: ED Attending Dr: Ordering Physician: NEL CONNOLLY NP Date of Service: 01/31/19 Procedure(s): XR chest routine 2V Accession Number(s): [id number] cc: NEL CONNOLLY NP Fluoro Time In Minutes: CHEST PA AND LATERAL VIEWS INDICATION: Chest Pain. COMPARISON: None FINDINGS: Support devices: None Heart: Normal Lungs/Pleura: Lungs are hyperinflated but clear of acute disease. No pleural fluid IMPRESSION: 1. Emphysema but no acute superimposed disease. Signer Name: Jose Flores MD Signed: 01/31/2019 9:37 PM Workstation Name: [id number] Transcribed By: TM Dictated By: Jose Flores MD Electronically Authenticated By: Jose Flores MD Signed Date/Time: 01/31/192136 DD/ 36 TD/TT: - Medical Decision Making Patient given a neb treatment and patient's wheezing has improved. Patient was started on short course of steroids at home. Patient given a Z-Arsen and patient prescribed a nebulizer machine as well. Critical care attestation.: If time is entered above; I have spent that time in minutes in the direct care of this critically ill patient, excluding procedure time. ED Disposition Clinical Impression: Acute exacerbation of COPD with asthma Disposition: DC- TO HOME OR SELFCARE Is pt being admited?: No Does the pt Need Aspirin: No Condition: Stable Instructions: Emphysema (ED) Time of Disposition: 00:19
[2019-02-01 00:41] VITALS: BP 117/79
== END 2019-02-01 00:52 | disposition home or self-care (01) ==
LOC: ED 20:24
DX: J44.1 Chronic obstructive pulmonary disease with (acute) exacerbation (principal); Z79.899 Other long term (current) drug therapy
CPT/HCPCS: 36415; 71046; 80048; 84484; 85025; 85610; 85730; 93005; 93010; 94644; 96374; 99284; J2930

== ENCOUNTER 2019-07-26 09:24 | Inpatient (IN) | payer SELFPAY ==
[2019-07-26] MEDS ORDERED: ONDANSETRON 4 MG/2 ML INJ IV ONE (13:45)
[2019-07-26] MEDS ORDERED: SODIUM CHLORIDE 0.9% 1000 ML 1,000 ML IV ONE (13:45)
[2019-07-26 14:17] LABS: Basophils # (Auto) 0.1 K/mm3 (0.0-0.1); Basophils % (Auto) 0.4 % (0.0-1.8); Eosinophils % (Auto) 0.1 % (0.0-4.3); Hematocrit 37.2 % (30.3-42.9); Hemoglobin 12.3 gm/dl (10.1-14.3); Lymphocytes # (Auto) 1.1 K/mm3 (1.2-5.4); Lymphocytes % (Auto) 5.5 % (13.4-35.0); Mean Corpuscular HGB Conc 33 % (30-34); Mean Corpuscular Volume 89 fl (79-97); Monocytes # (Auto) 1.2 K/mm3 (0.0-0.8); Monocytes % (Auto) 6.2 % (0.0-7.3); Platelet Count 213 K/mm3 (140-440); Red Blood Count 4.21 M/mm3 (3.65-5.03); Red Cell Distribution Width 15.9 % (13.2-15.2)
--- NOTE | 2019-07-26 14:28 | XRay Report ---
CHEST 1 VIEW INDICATION: fever. COMPARISON: 01/31/2019 FINDINGS: Support devices: None. Heart: Within normal limits. Pulmonary vasculature: Normal. Pulmonary vasculature: Normal. Lungs/Pleura: Right upper lobe airspace disease which is more confluence laterally at the minor fissu re. The rest of the lungs are clear. No pleural effusion. Additional findings: None. IMPRESSION: 1. Right upper lobe pneumonia with partial consolidation. Signer Name: Adam Delcid MD Signed: 07/26/2019 2:24 PM Workstation Name: [id number]
[2019-07-26] MEDS ORDERED: SODIUM CHLORIDE 0.9% 1000 ML IV SOLN IV ONE (14:46)
--- NOTE | 2019-07-26 14:49 | Emergency Department Report ---
ED General Adult HPI - General Chief complaint: Dyspnea/Respdistress Stated complaint: FEELING SICK Time Seen by Provider: 07/26/19 13:17 Source: patient Mode of arrival: Ambulatory Limitations: No Limitations - History of Present Illness Initial comments: The patient presents to the emergency department for chief complaint of a fever 5 days. Patient states she has not been able to break the fever with [id number] medications. Patient also complains of having chills and being fatigued. Patient denies a cough or chest pain. Patient also describes some nausea and vomiting that started last night. Patient denies abdominal pain. -: Gradual Severity scale (0 -10): 3 Quality: aching Consistency: constant Improves with: none Worsens with: none Associated Symptoms: denies other symptoms Treatments Prior to Arrival: none - Related Data Previous Rx's Medication Instructions Recorded Last Taken Type Acetaminophen [Acetaminophen TAB] 325 mg PO Q4H PRN #30 tablet 06/13/17 Unknown Rx Albuterol INH(or & Nicu Only) 2 puff IH QID PRN #1 unit 06/13/17 Unknown Rx [ProAir HFA Inhaler] Arformoterol Nebu [Brovana Nebu] 15 mcg IH Q12HR #7 day 06/13/17 Unknown Rx Budesonide [Pulmicort Respules] 0.5 mg IH Q12HR #7 day 06/13/17 Unknown Rx Ipratropium/Albuterol Sulfate 1 ampul IH Q6HRT PRN #30 day 06/13/17 Unknown Rx [DUONEB *Not for PRN Use*] levoFLOXacin [Levaquin TAB] 750 mg PO Q24HR #6 day 06/13/17 Unknown Rx predniSONE [Deltasone] 1 dose PO QDAY #20 day 06/13/17 Unknown Rx ALBUTEROL NEB's [Proventil 0.083% 2.5 mg IH TID PRN #20 neb 02/01/19 Unknown Rx NEBS] Azithromycin [Zithromax Z-ANDI] 250 mg PO DAILY #6 tablet 02/01/19 Unknown Rx Benzonatate [Tessalon Perles] 100 mg PO Q8HR #10 capsule 02/01/19 Unknown Rx predniSONE [Deltasone] 10 mg PO .TAPER #21 tab 02/01/19 Unknown Rx Allergies Allergy/AdvReac Type Severity Reaction Status Date / Time No Known Allergies Allergy Verified 01/31/19 20:27 ED Review of Systems ROS: Stated complaint: FEELING SICK Other details as noted in HPI Comment: All other systems reviewed and negative Constitutional: fever. denies: chills Eyes: denies: eye pain, eye discharge, vision change ENT: denies: ear pain, throat pain Respiratory: denies: cough, shortness of breath, wheezing Cardiovascular: denies: chest pain, palpitations Endocrine: no symptoms reported Gastrointestinal: denies: abdominal pain, nausea, diarrhea Genitourinary: denies: urgency, dysuria, discharge Musculoskeletal: denies: back pain, joint swelling, arthralgia Skin: denies: rash, lesions Neurological: denies: headache, weakness, paresthesias Psychiatric: denies: anxiety, depression Hematological/Lymphatic: denies: easy bleeding, easy bruising ED Past Medical Hx - Past Medical History Hx Congestive Heart Failure: No Hx Diabetes: No Hx Asthma: Yes Hx COPD: Yes - Social History Smoking Status: Former Smoker Substance Use Type: None - Medications Home Medications: Home Medications Medication Instructions Recorded Confirmed Last Taken Type Acetaminophen [Acetaminophen TAB] 325 mg PO Q4H PRN #30 tablet 06/13/17 Unknown Rx Albuterol INH(or & Nicu Only) 2 puff IH QID PRN #1 unit 06/13/17 Unknown Rx [ProAir HFA Inhaler] Arformoterol Nebu [Brovana Nebu] 15 mcg IH Q12HR #7 day 06/13/17 Unknown Rx Budesonide [Pulmicort Respules] 0.5 mg IH Q12HR #7 day 06/13/17 Unknown Rx Ipratropium/Albuterol Sulfate 1 ampul IH Q6HRT PRN #30 day 06/13/17 Unknown Rx [DUONEB *Not for PRN Use*] levoFLOXacin [Levaquin TAB] 750 mg PO Q24HR #6 day 06/13/17 Unknown Rx predniSONE [Deltasone] 1 dose PO QDAY #20 day 06/13/17 Unknown Rx ALBUTEROL NEB's [Proventil 0.083% 2.5 mg IH TID PRN #20 neb 02/01/19 Unknown Rx NEBS] Azithromycin [Zithromax Z-ANDI] 250 mg PO DAILY #6 tablet 02/01/19 Unknown Rx Benzonatate [Tessalon Perles] 100 mg PO Q8HR #10 capsule 02/01/19 Unknown Rx predniSONE [Deltasone] 10 mg PO .TAPER #21 tab 02/01/19 Unknown Rx ED Physical Exam - General Limitations: No Limitations General appearance: alert, in no apparent distress - Head Head exam: Present: atraumatic, normocephalic - Eye Eye exam: Present: normal appearance - ENT ENT exam: Present: mucous membranes dry - Neck Neck exam: Present: normal inspection - Respiratory Respiratory exam: Present: other (diminished breath sounds right upper lobe). Absent: respiratory distress - Cardiovascular Cardiovascular Exam: Present: normal rhythm, tachycardia. Absent: systolic murmur, diastolic murmur, rubs, gallop - GI/Abdominal GI/Abdominal exam: Present: soft, normal bowel sounds. Absent: distended, tenderness - Extremities Exam Extremities exam: Present: normal inspection - Back Exam Back exam: Present: normal inspection - Neurological Exam Neurological exam: Present: alert, oriented X3, CN II-XII intact. Absent: motor sensory deficit - Psychiatric Psychiatric exam: Present: normal affect, normal mood - Skin Skin exam: Present: warm, dry, intact, normal color. Absent: rash ED Course Vital Signs 07/26/19 07/26/19 07/26/19 09:31 12:53 12:56 Temperature 100.7 F H 99.3 F Pulse Rate 144 H 132 H Respiratory 18 19 19 Rate Blood Pressure 118/53 Blood Pressure 116/71 [Left] O2 Sat by Pulse 93 100 Oximetry 07/26/19 07/26/19 13:31 14:31 Temperature Pulse Rate 122 H 126 H Respiratory 17 23 Rate Blood Pressure 119/72 114/70 Blood Pressure [Left] O2 Sat by Pulse 93 92 Oximetry ED Medical Decision Making - Lab Data Result diagrams: 07/26/19 14:08 07/26/19 14:08 Lab Results 07/26/19 07/26/19 07/26/19 Range/Units 14:08 14:08 14:08 WBC 20.0 H (4.5-11.0) K/mm3 RBC 4.21 (3.65-5.03) M/mm3 Hgb 12.3 (10.1-14.3) gm/dl Hct 37.2 (30.3-42.9) % MCV 89 (79-97) fl MCH 29 (28-32) pg MCHC 33 (30-34) % RDW 15.9 H (13.2-15.2) % Plt Count 213 (140-440) K/mm3 Lymph % (Auto) 5.5 L (13.4-35.0) % [place] % (Auto) 6.2 (0.0-7.3) % Eos % (Auto) 0.1 (0.0-4.3) % Baso % (Auto) 0.4 (0.0-1.8) % Lymph # 1.1 L (1.2-5.4) K/mm3 [place] # 1.2 H (0.0-0.8) K/mm3 Eos # 0.0 (0.0-0.4) K/mm3 Baso # 0.1 (0.0-0.1) K/mm3 Seg Neutrophils % 87.8 H (40.0-70.0) % Seg Neutrophils # 17.6 H (1.8-7.7) K/mm3 Sodium 134 L (137-145) mmol/L Potassium 3.8 (3.6-5.0) mmol/L Chloride 90.2 L (98-107) mmol/L Carbon Dioxide 21 L (22-30) mmol/L Anion Gap 27 mmol/L BUN 15 (7-17) mg/dL Creatinine 0.5 L (0.7-1.2) mg/dL Estimated GFR > 60 ml/min BUN/Creatinine Ratio 30 % Glucose 99 (65-100) mg/dL Lactic Acid 1.30 (0.7-2.0) mmol/L Calcium 9.5 (8.4-10.2) mg/dL Total Bilirubin 0.40 (0.1-1.2) mg/dL AST 18 (5-40) units/L ALT 9 (7-56) units/L Alkaline Phosphatase 107 (35-129) units/L Total Protein 8.2 (6.3-8.2) g/dL Albumin 3.6 L (3.9-5) g/dL Albumin/Globulin Ratio 0.8 % - EKG Data -: EKG Interpreted by Vt EKG shows normal: sinus rhythm Rate: tachycardia - Medical Decision Making On repeat exam at 2:50 PM the patient's oxygen level was 87% on room air which is changed from the 94% she was satting upon presentation IV Abx given Critical Care Time: Yes Critical care time in (mins) excluding proc time.: 45 Critical care attestation.: If time is entered above; I have spent that time in minutes in the direct care of this critically ill patient, excluding procedure time. ED Disposition Clinical Impression: Sepsis, Pneumonia Disposition: 09 OP ADMIT IP TO THIS HOSP Is pt being admited?: Yes Does the pt Need Aspirin: No Condition: Fair Instructions: Bacterial Pneumonia (ED) Referrals: RHINA ROYAL MD [Primary Care Provider] - 3-5 Days
[2019-07-26] MEDS ORDERED: SODIUM CHLORIDE 0.9% 500 ML 500 ML ONE (14:54)
[2019-07-26 15:05] LABS: Alanine Aminotransferase 9 units/L (7-56); Albumin 3.6 g/dL (3.9-5); BUN/Creatinine Ratio 30; Blood Urea Nitrogen 15 mg/dL (7-17); Calcium 9.5 mg/dL (8.4-10.2); Hemolysis Index 4
--- NOTE | 2019-07-26 15:14 | History and Physical Report ---
History of Present Illness Chief complaint: I feel sick, I cannot breathe, and I keep coughing History of present illness: 62-year-old female with COPD, asthma, presents to ED for evaluation. Patient states that she has experienced shortness of breath, subjective fever, and productive cough with increased production of white sputum over the past 5 days with worsening of the aforementioned symptoms over the past 2 days. Patient acknowledges increased nebulizer use without improvement of symptoms. EMS notified, and upon arrival the patient was found to be in distress and subsequently transported to [facility] for further care and evaluation. Patient seen and evaluated in the emergency department. Laboratory and imaging studies reviewed. Patient found to have right upper lobe pneumonia complicated by sepsis, and acute hypoxemic respiratory failure. Patient was found to have pulse oximetry of 76% on room air. Patient admitted to medical floor for medical stabilization and initiated on sepsis protocol due to increased risk of pulmonary decompensation. Patient acknowledges fever, shortness of breath, and productive cough. Patient denies chest pain, palpitations, syncope, hemoptysis, unilateral leg swelling, bright red blood per rectum, skin rash, prolonged travel, prolonged immobility, unilateral leg swelling, individual/family history of DVT/PE/bleeding/blood clotting disorder. Prior admission on 06/10/2017 reviewed. All medication listed at time of admission have been reconciled. Advanced care planning conducted in the ED. Past History Past Medical History: COPD, other (see HPI') Past Surgical History: No surgical history, Other (Reviewed) Social history: single, lives with family. denies: smoking, alcohol abuse, prescription drug abuse Family history: CAD, hypertension Medications and Allergies Allergies Allergy/AdvReac Type Severity Reaction Status Date / Time No Known Allergies Allergy Verified 01/31/19 20:27 Home Medications Medication Instructions Recorded Confirmed Last Taken Type Acetaminophen [Acetaminophen TAB] 325 mg PO Q4H PRN #30 tablet 06/13/17 Unknown Rx Albuterol INH(or & Nicu Only) 2 puff IH QID PRN #1 unit 06/13/17 07/26/19 Unknown Rx [ProAir HFA Inhaler] Arformoterol Nebu [Brovana Nebu] 15 mcg IH Q12HR #7 day 06/13/17 Unknown Rx Budesonide [Pulmicort Respules] 0.5 mg IH Q12HR #7 day 06/13/17 Unknown Rx ALBUTEROL NEB's [Proventil 0.083% 2.5 mg IH TID PRN #20 neb 02/01/19 07/26/19 Unknown Rx NEBS] Prednisone [predniSONE 5 mg (6-Day 5 mg PO .TAPER 07/26/19 07/26/19 Unknown History Pack, 21 Tabs)] Tiotropium [Spiriva] 18 mcg IH QDAY 07/26/19 07/26/19 Unknown History Active Meds: Active Medications Ceftriaxone Sodium (Rocephin/Ns 2 Gm/100 Ml) 2 gm in 100 mls @ 200 mls/hr IV Q24HR ARIELLA; Protocol Azithromycin 500 mg/ Sodium (Chloride) 250 mls @ 250 mls/hr IV Q24HR ARIELLA; Protocol Review of Systems Constitutional: fever, chills, sweats, no weight loss, no weight gain Ears, nose, mouth and throat: no ear pain, no ear discharge, no tinnitis, no decreased hearing, no nose pain Breasts: no change in shape, no swelling, no mass Cardiovascular: no chest pain, no orthopnea, no palpitations, no rapid/irregular heart beat Respiratory: cough, cough with sputum, no congestion Gastrointestinal: no nausea, no vomiting, no diarrhea Rectal: no pain, no incontinence, no bleeding Musculoskeletal: no neck stiffness, no neck pain, no shooting arm pain, no arm numbness/tingling, no low back pain, no shooting leg pain Integumentary: no rash, no pruritis, no redness, no wounds, no jaundice Neurological: no paralysis, no weakness, no parathesias, no tingling, no seizures Psychiatric: anxiety, no memory loss, no change in sleep habits, no sleep disturbances, no insomnia, no hypersomnia, no change in appetite Endocrine: no cold intolerance, no heat intolerance, no polyphagia, no excessive thirst, no polydipsia, no polyuria Hematologic/Lymphatic: no easy bruising, no easy bleeding, no lymphadenopathy Allergic/Immunologic: no urticaria, no allergic rhinitis, no persistent infections, no anaphylaxis Exam - Constitutional Vitals: Temp Pulse Resp BP Pulse Ox 99.3 F 126 H 23 114/70 92 07/26/19 12:53 07/26/19 14:31 07/26/19 14:31 07/26/19 14:31 07/26/19 14:31 General appearance: Present: mild distress - EENT Eyes: Present: PERRL ENT: hearing intact, clear oral mucosa - Neck Neck: Present: supple, normal ROM - Respiratory Respiratory effort: normal Respiratory: right: diminished, rhonchi - Cardiovascular Rhythm: other (tachycardia) Heart Sounds: Present: S1 & S2. Absent: rub, click - Extremities Extremities: pulses symmetrical, No edema Peripheral Pulses: abnormal (Capillary refill greater than 3.5 seconds) - Abdominal General gastrointestinal: Present: soft, non-tender, non-distended, normal bowel sounds Female genitourinary: Present: normal - Integumentary Integumentary: Present: clear, warm, dry - Musculoskeletal Musculoskeletal: gait normal, strength equal bilaterally - Psychiatric Psychiatric: appropriate mood/affect, intact judgment & insight - Neurologic Neurologic: CNII-XII intact, moves all extremities Results - Labs CBC & Chem 7: 07/26/19 14:08 07/26/19 14:08 Labs: Abnormal lab results 07/26/19 07/26/19 Range/Units 14:08 14:08 WBC 20.0 H (4.5-11.0) K/mm3 RDW 15.9 H (13.2-15.2) % Lymph % (Auto) 5.5 L (13.4-35.0) % Lymph # 1.1 L (1.2-5.4) K/mm3 [place] # 1.2 H (0.0-0.8) K/mm3 Seg Neutrophils % 87.8 H (40.0-70.0) % Seg Neutrophils # 17.6 H (1.8-7.7) K/mm3 Sodium 134 L (137-145) mmol/L Chloride 90.2 L (98-107) mmol/L Carbon Dioxide 21 L (22-30) mmol/L Creatinine 0.5 L (0.7-1.2) mg/dL Albumin 3.6 L (3.9-5) g/dL Assessment and Plan - Patient Problems (1) Sepsis Current Visit: Yes Status: Acute Qualifiers: Acute respiratory failure type: with hypoxia Plan to address problem: IV fluid resuscitation therapy, serial lactic acid, CBC, CMP, blood cultures, urinalysis, chest x-ray, serial lactic acid level. Monitor urine output every shift, influenza antigen. (2) Pneumonia Current Visit: Yes Status: Acute Qualifiers: Laterality: right Lung location: upper lobe of lung Plan to address problem: IV fluid resuscitation therapy IV antibiotic therapy, CBC, CMP, chest x-ray, pulse oximetry, nebulizer therapy, (3) Acidosis Current Visit: Yes Status: Acute Plan to address problem: IV fluid resuscitation therapy, treat sepsis, serial lactic acid level. (4) Hyponatremia syndrome Current Visit: Yes Status: Acute Plan to address problem: BMP, IV fluid resuscitation therapy, repeat BMP in a.m. (5) Advance care planning Current Visit: Yes Status: Acute Plan to address problem: Patient is full code, disease education conducted in the emergency department, patient and family acknowledged understanding and agreement with care plan, +30 minutes. (6) DVT prophylaxis Current Visit: Yes Status: Acute Plan to address problem: SCD to bilateral lower extremities while in bed, prophylactic heparin.
[2019-07-26] MEDS ORDERED: ONDANSETRON 4 MG/2 ML INJ IV PRN (15:15)
[2019-07-26] MEDS ORDERED: oxyCODONE /ACETAMINOPHEN 5-325MG TAB PO PRN (15:15)
[2019-07-26] MEDS ORDERED: VANCOMYCIN 1,000 MG in SODIUM CHLORIDE 0.9% 500 ML 500 ML IV ONE (15:15)
[2019-07-26] MEDS ORDERED: ACETAMINOPHEN 325 MG TAB PO PRN (15:20)
[2019-07-26] MEDS: AZITHROMYCIN 500 MG in SODIUM CHLORIDE 0.9% 250ML 250 ML IV SCH (15:42)
[2019-07-26] MEDS ORDERED: VANCOMYCIN PHARMACY TO DOSE IV SCH (16:00)
[2019-07-26] MEDS: cefTRIAXone/NS 2 GM/100 ML 2 GM/100 ML BAG IV SCH (16:46)
[2019-07-26 17:28] LABS: Bacteria,Urine 1+ /HPF (Negative); Bilirubin,Urine NEG (Negative); Blood,Urine MOD (Negative); Color,Urine Yellow (Yellow); Mucus,Urine 2+ /HPF; Urobilinogen,Urine < 2.0 mg/dL (<2.0)
[2019-07-26] MEDS ORDERED: ACETAMINOPHEN 325 MG TAB ONE (17:52)
[2019-07-26] MEDS: ACETAMINOPHEN 325 MG TAB PO PRN (17:53)
[2019-07-26] MEDS: VANCOMYCIN/NS 1 GM/250 ML 1 GM/250 ML BAG IV SCH (18:23)
[2019-07-26] MEDS: BUDESONIDE 0.5 MG/2 ML NEBU IH SCH ×2 (20:18→21:55)
[2019-07-26] MEDS: ARFORMOTEROL 15 MCG/2 ML NEBU IH SCH ×2 (20:19→21:55)
[2019-07-26] MEDS: BENZONATATE 100 MG CAP PO SCH (21:19)
[2019-07-27] MEDS: ALBUTEROL 2.5 MG/3 ML NEBU IH PRN ×3 (02:33→14:23)
[2019-07-27] MEDS: VANCOMYCIN/NS 1 GM/250 ML 1 GM/250 ML BAG IV SCH (04:38)
[2019-07-27 05:36] LABS: Basophils # (Auto) 0.1 K/mm3 (0.0-0.1); Basophils % (Auto) 0.3 % (0.0-1.8); Lymphocytes % (Auto) 5.6 % (13.4-35.0); Mean Corpuscular HGB Conc 33 % (30-34); Mean Corpuscular Volume 88 fl (79-97); Platelet Count 182 K/mm3 (140-440); Red Blood Count 3.39 M/mm3 (3.65-5.03); Red Cell Distribution Width 16.1 % (13.2-15.2)
[2019-07-27] MEDS: VANCOMYCIN 750 MG in SODIUM CHLORIDE 0.9% 250ML 250 ML IV SCH ×2 (05:49→16:07)
[2019-07-27 06:05] LABS: Alanine Aminotransferase 12 units/L (7-56); Albumin 2.7 g/dL (3.9-5); BUN/Creatinine Ratio 20; Blood Urea Nitrogen 8 mg/dL (7-17); Calcium 8.1 mg/dL (8.4-10.2); Hemolysis Index 2
[2019-07-27] MEDS: BENZONATATE 100 MG CAP PO SCH ×2 (06:06→14:16)
[2019-07-27] MEDS: ACETAMINOPHEN 325 MG TAB PO PRN (06:06)
[2019-07-27] MEDS: BUDESONIDE 0.5 MG/2 ML NEBU IH SCH ×4 (08:20→22:04)
[2019-07-27] MEDS: ARFORMOTEROL 15 MCG/2 ML NEBU IH SCH ×4 (08:21→22:04)
[2019-07-27] MEDS ORDERED: ALBUTEROL 2.5 MG/3 ML NEBU IH ONE (10:00)
[2019-07-27] MEDS: cefTRIAXone/NS 2 GM/100 ML 2 GM/100 ML BAG IV SCH (10:29)
[2019-07-27] MEDS: AZITHROMYCIN 500 MG in SODIUM CHLORIDE 0.9% 250ML 250 ML IV SCH (10:29)
[2019-07-27] MEDS ORDERED: POTASSIUM CHLORIDE ER 20 MEQ TAB PO NR (11:53)
--- NOTE | 2019-07-27 11:57 | Progress Note ---
Assessment and Plan /Acute hypoxic respiratory failure - likely from underlying PNA and COPD - cont to treat underlying cause /Sepsis due to PNA IV fluid resuscitation therapy, serial lactic acid, CBC, CMP, blood cultures, urinalysis, chest x-ray, serial lactic acid level. Monitor urine output every shift, influenza antigen. /COPD with acute exacerbation - cont nebs, treat underlying PNA, iv steroid, supplemental O2 / Pneumonia - CAP IV fluid resuscitation therapy IV antibiotic therapy, CBC, CMP, chest x-ray, pulse oximetry, nebulizer therapy, / Metabolic Acidosis IV fluid resuscitation therapy, treat sepsis, serial lactic acid level. / Hyponatremia BMP, IV fluid resuscitation therapy, repeat BMP in a.m. /hypokalemia, replete /tobacco abuse, counselled / Advance care planning Patient is full code, disease education conducted in the emergency department, patient and family acknowledged understanding and agreement with care plan, +30 minutes on admission /DVT prophylaxis SCD to bilateral lower extremities while in bed, prophylactic heparin. Subjective Date of service: 07/27/19 Interval history: Patient seen and examined c/o cough, SOB on exertion no fever now, denies chest pain discussed plan of care with patient and family Objective - Constitutional Vitals: Vital Signs - 12hr 07/27/19 07/27/19 07/27/19 02:33 05:41 08:26 Temperature 100.5 F H Pulse Rate 117 H Pulse Rate [ 100 H 100 H Throughout] Respiratory 20 Rate Respiratory 22 18 Rate [ Throughout] Blood Pressure 110/69 O2 Sat by Pulse 94 100 Oximetry General appearance: Present: mild distress, well-nourished - EENT Eyes: PERRL, EOM intact ENT: hearing intact, clear oral mucosa Ears: bilateral: normal - Neck Neck: supple, normal ROM - Respiratory Respiratory effort: normal Respiratory: bilateral: wheezing - Cardiovascular Rhythm: regular Heart Sounds: Present: S1 & S2. Absent: gallop, rub Extremities: pulses intact, No edema, normal color, Full ROM - Gastrointestinal General gastrointestinal: Present: soft, non-tender, non-distended, normal bowel sounds - Integumentary Integumentary: clear, warm, dry - Musculoskeletal Musculoskeletal: 1, strength equal bilaterally - Neurologic Neurologic: moves all extremities - Psychiatric Psychiatric: memory intact, appropriate mood/affect, intact judgment & insight - Labs CBC & Chem 7: 07/28/19 04:56 07/28/19 04:56 Labs: Abnormal lab results 07/26/19 07/26/19 07/26/19 Range/Units 14:08 14:08 15:04 WBC 20.0 H (4.5-11.0) K/mm3 RBC (3.65-5.03) M/mm3 Hgb (10.1-14.3) gm/dl Hct (30.3-42.9) % RDW 15.9 H (13.2-15.2) % Lymph % (Auto) 5.5 L (13.4-35.0) % Lymph # 1.1 L (1.2-5.4) K/mm3 [place] # 1.2 H (0.0-0.8) K/mm3 Seg Neutrophils % 87.8 H (40.0-70.0) % Seg Neutrophils # 17.6 H (1.8-7.7) K/mm3 APTT 39.4 H (24.2-36.6) Sec. POC ABG pO2 (80-105) Sodium 134 L (137-145) mmol/L Potassium (3.6-5.0) mmol/L Chloride 90.2 L (98-107) mmol/L Carbon Dioxide 21 L (22-30) mmol/L Creatinine 0.5 L (0.7-1.2) mg/dL Glucose (65-100) mg/dL Calcium (8.4-10.2) mg/dL Albumin 3.6 L (3.9-5) g/dL Urine WBC (Auto) (0.0-6.0) /HPF 07/26/19 07/26/19 07/27/19 Range/Units 15:41 16:33 04:20 WBC 17.4 H (4.5-11.0) K/mm3 RBC 3.39 L (3.65-5.03) M/mm3 Hgb 10.0 L (10.1-14.3) gm/dl Hct 30.0 L D (30.3-42.9) % RDW 16.1 H (13.2-15.2) % Lymph % (Auto) 5.6 L (13.4-35.0) % Lymph # 1.0 L (1.2-5.4) K/mm3 [place] # 1.0 H (0.0-0.8) K/mm3 Seg Neutrophils % 88.1 H (40.0-70.0) % Seg Neutrophils # 15.3 H (1.8-7.7) K/mm3 APTT (24.2-36.6) Sec. POC ABG pO2 55 L (80-105) Sodium (137-145) mmol/L Potassium (3.6-5.0) mmol/L Chloride (98-107) mmol/L Carbon Dioxide (22-30) mmol/L Creatinine (0.7-1.2) mg/dL Glucose (65-100) mg/dL Calcium (8.4-10.2) mg/dL Albumin (3.9-5) g/dL Urine WBC (Auto) 31.0 H (0.0-6.0) /HPF 07/27/19 Range/Units 04:20 WBC (4.5-11.0) K/mm3 RBC (3.65-5.03) M/mm3 Hgb (10.1-14.3) gm/dl Hct (30.3-42.9) % RDW (13.2-15.2) % Lymph % (Auto) (13.4-35.0) % Lymph # (1.2-5.4) K/mm3 [place] # (0.0-0.8) K/mm3 Seg Neutrophils % (40.0-70.0) % Seg Neutrophils # (1.8-7.7) K/mm3 APTT (24.2-36.6) Sec. POC ABG pO2 (80-105) Sodium (137-145) mmol/L Potassium 3.5 L (3.6-5.0) mmol/L Chloride (98-107) mmol/L Carbon Dioxide 20 L (22-30) mmol/L Creatinine 0.4 L (0.7-1.2) mg/dL Glucose 111 H (65-100) mg/dL Calcium 8.1 L (8.4-10.2) mg/dL Albumin 2.7 L (3.9-5) g/dL Urine WBC (Auto) (0.0-6.0) /HPF - Imaging and cardiology Chest x-ray: report reviewed (RUL PNA)
[2019-07-27] MEDS ORDERED: BENZONATATE 100 MG CAP PO PRN (16:03)
[2019-07-27] MEDS: NYSTATIN 500,000 UNIT/5 ML ORAL LIQD PO SCH ×2 (17:28→21:49)
[2019-07-28] MEDS: VANCOMYCIN 750 MG in SODIUM CHLORIDE 0.9% 250ML 250 ML IV SCH (03:54)
[2019-07-28 07:09] LABS: Basophils # (Auto) 0.1 K/mm3 (0.0-0.1); Basophils % (Auto) 0.8 % (0.0-1.8); Eosinophils # (Auto) 0.1 K/mm3 (0.0-0.4); Eosinophils % (Auto) 1.6 % (0.0-4.3); Hematocrit 28.2 % (30.3-42.9); Hemoglobin 9.6 gm/dl (10.1-14.3); Lymphocytes # (Auto) 1.3 K/mm3 (1.2-5.4); Lymphocytes % (Auto) 15.1 % (13.4-35.0); Mean Corpuscular HGB Conc 34 % (30-34); Mean Corpuscular Volume 89 fl (79-97); Monocytes # (Auto) 0.9 K/mm3 (0.0-0.8); Monocytes % (Auto) 11.2 % (0.0-7.3); Platelet Count 206 K/mm3 (140-440); Red Blood Count 3.18 M/mm3 (3.65-5.03); Red Cell Distribution Width 15.7 % (13.2-15.2)
[2019-07-28 07:37] LABS: BUN/Creatinine Ratio 23; Blood Urea Nitrogen 7 mg/dL (7-17); Calcium 8.4 mg/dL (8.4-10.2); Hemolysis Index 3
[2019-07-28] MEDS: BUDESONIDE 0.5 MG/2 ML NEBU IH SCH ×2 (07:52→19:26)
[2019-07-28] MEDS: ARFORMOTEROL 15 MCG/2 ML NEBU IH SCH ×4 (07:52→23:03)
[2019-07-28] MEDS: ALBUTEROL 2.5 MG/3 ML NEBU IH PRN (07:52)
[2019-07-28] MEDS ORDERED: POTASSIUM CHLORIDE ER 20 MEQ TAB PO ONE (09:00)
[2019-07-28] MEDS: cefTRIAXone/NS 2 GM/100 ML 2 GM/100 ML BAG IV SCH (09:33)
[2019-07-28] MEDS: NYSTATIN 500,000 UNIT/5 ML ORAL LIQD PO SCH ×2 (09:35→21:11)
[2019-07-28] MEDS ORDERED: ALBUTEROL 2.5 MG/3 ML NEBU IH ONE (10:00)
[2019-07-28] MEDS ORDERED: BUDESONIDE 0.5 MG/2 ML NEBU IH SCH (10:00)
[2019-07-28] MEDS: AZITHROMYCIN 500 MG in SODIUM CHLORIDE 0.9% 250ML 250 ML IV SCH (12:17)
--- NOTE | 2019-07-28 12:20 | Discharge Summary ---
Providers - Providers Date of Admission: 07/26/19 15:15 Date of discharge: 07/28/19 Attending physician: GUALBERTO PRAKASH Primary care physician: [facility] Hospitalization Condition: Fair Pertinent studies: CXR 2d echo Hospital course: 62-year-old female with COPD, asthma, presents to ED for evaluation of shortness of breath, subjective fever, and productive cough with increased production of white sputum over the past 5 days. Patient acknowledges increased nebulizer use without improvement of symptoms. EMS notified, and upon arrival the patient was found to be in distress and subsequently transported to [facility] for further care and evaluation. Patient seen and evaluated in the emergency department, found to have right upper lobe pneumonia complicated by sepsis, and acute hypoxemic respiratory failure with pulse oximetry of 76% on room air. Patient admitted to medical floor for medical stabilization and initiated on sepsis protocol due to increased risk of pulmonary decompensation. She was treated for PNA with empiric abx, given scheduled nebs, supplemental O2. Her white count normalized, remained afebrile. She was assessed for home O2 requirement. Patient was then discharged home in stable condition. Discharge diagnosis: /Acute hypoxic respiratory failure - likely from underlying PNA and COPD - cont to treat underlying cause /Sepsis due to PNA negative influenza antigen. treated for PNA /COPD with acute exacerbation / Pneumonia - CAP / Metabolic Acidosis from sepsis IV fluid resuscitation therapy, treat sepsis, serial lactic acid level. / Hyponatremia, placed on iv fluid /hypokalemia, repleted /tobacco abuse, counselled / Advance care planning Patient is full code, disease education conducted in the emergency department, patient and family acknowledged understanding and agreement with care plan, +30 minutes on admission /DVT prophylaxis SCD to bilateral lower extremities while in bed, prophylactic heparin. Time spent for discharge: 34 minutes Core Measure Documentation - Palliative Care Palliative Care/ Comfort Measures: Not Applicable - Core Measures Any of the following diagnoses?: none Exam - Constitutional Vitals: Temp Pulse Resp BP Pulse Ox 97.9 F 77 18 91/58 100 07/28/19 05:01 07/28/19 07:53 07/28/19 07:53 07/28/19 05:01 07/28/19 07:53 General appearance: Present: no acute distress, well-nourished - EENT Eyes: Present: PERRL ENT: hearing intact, clear oral mucosa - Neck Neck: Present: supple, normal ROM - Respiratory Respiratory effort: normal Respiratory: bilateral: CTA - Cardiovascular Heart Sounds: Present: S1 & S2. Absent: rub, click - Extremities Extremities: pulses symmetrical, No edema Peripheral Pulses: within normal limits - Abdominal General gastrointestinal: Present: soft, non-tender, non-distended, normal bowel sounds - Integumentary Integumentary: Present: clear, warm, dry - Musculoskeletal Musculoskeletal: gait normal, strength equal bilaterally - Psychiatric Psychiatric: appropriate mood/affect, intact judgment & insight - Neurologic Neurologic: CNII-XII intact, moves all extremities Plan Activity: advance as tolerated Weight Bearing Status: Weight Bear as Tolerated Diet: low fat Durable Medical Equipment Needed Upon Discharge: Oxygen (2L N/C) Follow up with: RHINA ROYAL MD [Primary Care Provider] - 3-5 Days TANO KARIMI MD [Staff Physician] - 7 Days Prescriptions: Arformoterol Nebu [Brovana Nebu] 15 mcg IH Q12HR #7 day levoFLOXacin [Levaquin] 750 mg PO QDAY #5 tablet Nystatin [Nystatin SUSP] 500,000 unit PO QID 5 Days Albuterol INH(or & Nicu Only) [ProAir HFA Inhaler] 2 puff IH QID PRN #1 unit PRN Reason: Shortness Of Breath ALBUTEROL NEB's [Proventil 0.083% NEBS] 2.5 mg IH TID PRN #20 neb PRN Reason: Wheezing Budesonide [Pulmicort Respules] 0.5 mg IH Q12HR #7 day Tiotropium [Spiriva] 18 mcg IH QDAY #30 cap
[2019-07-28] MEDS ORDERED: methylPREDNISolone Sod Succinate 125 MG/2 ML INJ IV ONE (12:30)
[2019-07-28] MEDS: TIOTROPIUM 18 MCG CAP INHALATION IH SCH (13:18)
[2019-07-28] MEDS ORDERED: BUDESONIDE 0.5 MG, ARFORMOTEROL NEBU 15 MCG IH SCH (20:00)
[2019-07-29] MEDS: NYSTATIN 500,000 UNIT/5 ML ORAL LIQD PO SCH ×3 (00:27→13:18)
[2019-07-29] MEDS: BUDESONIDE 0.5 MG/2 ML NEBU IH SCH (08:13)
[2019-07-29] MEDS: ARFORMOTEROL 15 MCG/2 ML NEBU IH SCH ×2 (08:14→10:09)
[2019-07-29] MEDS: TIOTROPIUM 18 MCG CAP INHALATION IH SCH (08:14)
[2019-07-29] MEDS ORDERED: methylPREDNISolone Sod Succinate 40 MG/1 ML INJ IV SCH (09:40)
[2019-07-29] MEDS ORDERED: predniSONE 20 MG TAB PO SCH (10:00)
[2019-07-29] MEDS: AZITHROMYCIN 500 MG in SODIUM CHLORIDE 0.9% 250ML 250 ML IV SCH (10:33)
[2019-07-29] MEDS: cefTRIAXone/NS 2 GM/100 ML 2 GM/100 ML BAG IV SCH (10:33)
[2019-07-29] MEDS ORDERED: POTASSIUM CHLORIDE ER 20 MEQ TAB PO NR (11:00)
--- NOTE | 2019-07-29 11:26 | Event Note ---
Date: 07/29/19 discharge was hold for home o2 set up. home O2 is being delivered today and patient is being discharge today.
[2019-07-29] MEDS: VANCOMYCIN 750 MG in SODIUM CHLORIDE 0.9% 250ML 250 ML IV SCH (12:16)
[2019-07-29 12:45] VITALS: BP 112/68
== END 2019-07-29 15:58 | disposition home or self-care (01) | DRG 871 ==
LOC: ED 09:24 → 3A 15:15
PROVIDERS: ADMIT Internal Medicine; ATTEND Internal Medicine
PROC: 4A033R1 Measurement of Arterial Saturation, Peripheral, Percutaneous Approach (ICD-10-PCS; principal; 2019-07-26)
DX: A41.9 Sepsis, unspecified organism (principal); J18.9 Pneumonia, unspecified organism; J96.01 Acute respiratory failure with hypoxia; J44.0 Chronic obstructive pulmonary disease with (acute) lower respiratory infection; E87.1 Hypo-osmolality and hyponatremia; J44.1 Chronic obstructive pulmonary disease with (acute) exacerbation; E87.6 Hypokalemia; Z87.891 Personal history of nicotine dependence
CPT/HCPCS: 36415; 71045; 80048; 80053; 81001; 82140; 82803; 85025; 85730; 86850; 86900; 86901; 87040; 87086; 93005; 93010; 94640; 94760; G0378; J0456; J0696; J2405; J2930; J3370; J7030; J7040; J7050; J7512

== ENCOUNTER 2019-08-19 22:28 | Inpatient (IN) | payer MEDICAID ==
[2019-08-19] MEDS ORDERED: MAGNESIUM SULFATE 2 GM/50 ML BAG IV ONE (22:35)
[2019-08-19] MEDS ORDERED: IPRATROPIUM 0.02% NEBU 2.5 ML IH ONE (22:36)
[2019-08-19] MEDS ORDERED: ALBUTEROL 2.5 MG/3 ML NEBU IH ONE (22:36)
--- NOTE | 2019-08-19 22:42 | Emergency Department Report ---
ED Asthma HPI - General Stated Complaint: RESPIRATORY DISTRESS Time Seen by Provider: 08/19/19 22:35 Source: patient, EMS, old records reviewed Mode of arrival: Stretcher Limitations: No Limitations - History of Present Illness Initial Comments: Mrs. Love is a 64-year-old female with history of asthma COPD presents with shortness of breath and chest tightness central which started 2 hours ago. Recently admitted and discharged July 28 from this hospital for sepsis acute hypoxemic respiratory failure pneumonia. She presents in severe work of breathing via EMS. Treated with albuterol 5 mg and Solu-Medrol prior to arrival. MD Complaint: shortness of breath -: Gradual, hour(s) (2) Asthma History: history of prior ED visit Severity: severe Context: other (recent illness) Associated Symptoms: productive cough Treatments Prior to Arrival: inhaled bronchodilator, IV steroid, oxygen - Related Data Previous Rx's Medication Instructions Recorded Last Taken Type Acetaminophen [Acetaminophen TAB] 325 mg PO Q4H PRN #30 tablet 06/13/17 Unknown Rx ALBUTEROL NEB's [Proventil 0.083% 2.5 mg IH TID PRN #20 neb 07/28/19 Unknown Rx NEBS] Albuterol INH(or & Nicu Only) 2 puff IH QID PRN #1 unit 07/28/19 Unknown Rx [ProAir HFA Inhaler] Arformoterol Nebu [Brovana Nebu] 15 mcg IH Q12HR #7 day 07/28/19 Unknown Rx Budesonide [Pulmicort Respules] 0.5 mg IH Q12HR #7 day 07/28/19 Unknown Rx Nystatin [Nystatin SUSP] 500,000 unit PO QID 5 Days 07/28/19 Unknown Rx Tiotropium [Spiriva] 18 mcg IH QDAY #30 cap 07/28/19 Unknown Rx levoFLOXacin [Levaquin] 750 mg PO QDAY #5 tablet 07/28/19 Unknown Rx Allergies Allergy/AdvReac Type Severity Reaction Status Date / Time No Known Allergies Allergy Verified 01/31/19 20:27 ED Review of Systems ROS: Stated complaint: RESPIRATORY DISTRESS Other details as noted in HPI Comment: All other systems reviewed and negative Constitutional: denies: fever, malaise Respiratory: cough, shortness of breath, wheezing Cardiovascular: chest pain Gastrointestinal: nausea. denies: abdominal pain, vomiting ED Past Medical Hx - Past Medical History Previous Medical History?: Yes Hx Congestive Heart Failure: No Hx Diabetes: No Hx Asthma: Yes Hx COPD: Yes - Social History Smoking Status: Former Smoker - Medications Home Medications: Home Medications Medication Instructions Recorded Confirmed Last Taken Type Acetaminophen [Acetaminophen TAB] 325 mg PO Q4H PRN #30 tablet 06/13/17 Unknown Rx ALBUTEROL NEB's [Proventil 0.083% 2.5 mg IH TID PRN #20 neb 07/28/19 Unknown Rx NEBS] Albuterol INH(or & Nicu Only) 2 puff IH QID PRN #1 unit 07/28/19 Unknown Rx [ProAir HFA Inhaler] Arformoterol Nebu [Brovana Nebu] 15 mcg IH Q12HR #7 day 07/28/19 Unknown Rx Budesonide [Pulmicort Respules] 0.5 mg IH Q12HR #7 day 07/28/19 Unknown Rx Nystatin [Nystatin SUSP] 500,000 unit PO QID 5 Days 07/28/19 Unknown Rx Tiotropium [Spiriva] 18 mcg IH QDAY #30 cap 07/28/19 Unknown Rx levoFLOXacin [Levaquin] 750 mg PO QDAY #5 tablet 07/28/19 Unknown Rx ED Physical Exam - General General appearance: alert, anxious, in distress, other (severe work of breathing pursed lip breathing) - Head Head exam: Present: atraumatic, normocephalic - Eye Eye exam: Present: normal appearance - ENT ENT exam: Present: mucous membranes moist - Neck Neck exam: Present: normal inspection, full ROM - Respiratory Respiratory exam: Present: accessory muscle use, decreased breath sounds (breath sounds are able to be auscultated), prolonged expiratory. Absent: respiratory distress, wheezes, rales, rhonchi, stridor - Cardiovascular Cardiovascular Exam: Present: normal rhythm, tachycardia, normal heart sounds. Absent: systolic murmur, diastolic murmur, rubs, gallop - GI/Abdominal GI/Abdominal exam: Present: soft, normal bowel sounds. Absent: distended, tenderness, guarding, rebound - Extremities Exam Extremities exam: Present: normal inspection - Neurological Exam Neurological exam: Present: alert, oriented X3 - Psychiatric Psychiatric exam: Present: normal affect, anxious - Skin Skin exam: Present: warm, dry, intact, normal color. Absent: rash ED Course Vital Signs 08/19/19 08/19/19 08/19/19 22:36 23:23 23:28 Temperature 98.0 F Pulse Rate 126 H 127 H Pulse Rate [ 130 H Bilateral] Respiratory 30 H 21 Rate Respiratory 28 H Rate [Bilateral ] Blood Pressure 146/75 115/73 O2 Sat by Pulse 100 99 Oximetry ED Medical Decision Making - Lab Data Result diagrams: 08/19/19 22:58 08/19/19 22:58 Laboratory Results - last 24 hr 08/19/19 08/19/19 08/19/19 22:58 22:58 22:58 WBC 10.3 RBC 4.21 Hgb 12.6 Hct 38.0 MCV 90 MCH 30 MCHC 33 RDW 16.2 H Plt Count 294 Lymph % (Auto) 30.3 [place] % (Auto) 4.9 Eos % (Auto) 5.0 H Baso % (Auto) 0.4 Lymph # 3.1 [place] # 0.5 Eos # 0.5 H Baso # 0.0 Seg Neutrophils % 59.4 Seg Neutrophils # 6.1 D-Dimer 738.56 H ABG pH ABG pCO2 ABG pO2 ABG HCO3 ABG O2 Saturation ABG O2 Content ABG Base Excess ABG Hemoglobin ABG Carboxyhemoglobin ABG Methemoglobin Oxyhemoglobin FiO2 Sodium 141 Potassium 3.3 L Chloride 99.0 Carbon Dioxide 27 Anion Gap 18 BUN 11 Creatinine 0.6 L Estimated GFR > 60 BUN/Creatinine Ratio 18 Glucose 144 H Calcium 9.2 Total Bilirubin 0.20 AST 21 ALT 12 Alkaline Phosphatase 95 Troponin T < 0.010 NT-Pro-B Natriuret Pep Total Protein 7.8 Albumin 4.2 Albumin/Globulin Ratio 1.2 08/19/19 08/19/19 08/20/19 22:58 23:30 01:16 WBC RBC Hgb Hct MCV MCH MCHC RDW Plt Count Lymph % (Auto) [place] % (Auto) Eos % (Auto) Baso % (Auto) Lymph # [place] # Eos # Baso # Seg Neutrophils % Seg Neutrophils # D-Dimer ABG pH 7.324 L ABG pCO2 56.8 ABG pO2 118.2 H ABG HCO3 28.9 H ABG O2 Saturation 98.0 ABG O2 Content 17.2 ABG Base Excess 1.7 ABG Hemoglobin 12.6 ABG Carboxyhemoglobin 1.3 ABG Methemoglobin 0.6 Oxyhemoglobin 96.1 FiO2 28 Sodium Potassium Chloride Carbon Dioxide Anion Gap BUN Creatinine Estimated GFR BUN/Creatinine Ratio Glucose Calcium Total Bilirubin AST ALT Alkaline Phosphatase Troponin T < 0.010 NT-Pro-B Natriuret Pep 37.33 Total Protein Albumin Albumin/Globulin Ratio - EKG Data 08/19/19 22:44 EKG obtained 2238 Sinus tachycardia rate 120 beats a minute normal axis prolonged QTC no ST elevation no signs of ischemia - Radiology Data Radiology results: report reviewed Chest radiograph chronic appearing scarring versus congestion in the right lower lobe CT angiogram of chest: Negative for pulmonary embolism, emphysematous changes without overt infiltrate - Medical Decision Making Ms. Love presents with acute respiratory failure hypoxia and hypercapnia. ABG revealed respiratory acidosis. She markedly improved with treatment in the emergency department which included continuous nebulizer therapy, IV magnesium, IV antibiotic. She will receive IV steroids arrival. CT angiogram negative for PE. Admitted to the hospital service in fair Condition. Critical Care Time: Yes Critical care attestation.: If time is entered above; I have spent that time in minutes in the direct care of this critically ill patient, excluding procedure time. 40 minutes of critical care time excluding procedures were used in the care of the patient. Due to severe work of breathing CONCERN for impending airway compromise. I coached patient for optimal breathing. I called for respiratory therapist and NIPPV. I directed resuscitation with nurse and respiratory therapist. Mrs. Love required multiple reassessments. I reviewed electronic medical record. I was at the bedside for the first 15 minutes of her care. ED Disposition Clinical Impression: Acute respiratory failure with hypoxia and hypercapnia Disposition: OP ADMIT IP TO THIS HOSP Is pt being admited?: Yes Does the pt Need Aspirin: No Condition: Stable
--- NOTE | 2019-08-19 22:59 | XRay Report ---
CHEST 1 VIEW INDICATION: Dyspnea. COMPARISON: 07/26/2019 FINDINGS: Support devices: None. Heart: Within normal limits. Lungs/Pleura: No acute air space or interstitial disease. Right upper lobe airspace disease has resol ingrid. Additional findings: None. IMPRESSION: 1. No acute findings. Right upper lobe airspace disease has resolved. Signer Name: Brady Norman MD Signed: 08/19/2019 10:55 PM Workstation Name: [id number]
[2019-08-19] MEDS ORDERED: ONDANSETRON 4 MG/2 ML INJ IV ONE (23:10)
[2019-08-19] MEDS ORDERED: ONDANSETRON 4 MG/2 ML INJ ONE (23:12)
[2019-08-19 23:17] LABS: Basophils % (Auto) 0.4 % (0.0-1.8); Eosinophils # (Auto) 0.5 K/mm3 (0.0-0.4); Hemoglobin 12.6 gm/dl (10.1-14.3); Lymphocytes # (Auto) 3.1 K/mm3 (1.2-5.4); Lymphocytes % (Auto) 30.3 % (13.4-35.0); Mean Corpuscular HGB Conc 33 % (30-34); Mean Corpuscular Volume 90 fl (79-97); Monocytes # (Auto) 0.5 K/mm3 (0.0-0.8); Monocytes % (Auto) 4.9 % (0.0-7.3); Platelet Count 294 K/mm3 (140-440); Red Blood Count 4.21 M/mm3 (3.65-5.03); Red Cell Distribution Width 16.2 % (13.2-15.2)
[2019-08-19 23:44] LABS: Alanine Aminotransferase 12 units/L (7-56); Albumin 4.2 g/dL (3.9-5); BUN/Creatinine Ratio 18; Blood Urea Nitrogen 11 mg/dL (7-17); Calcium 9.2 mg/dL (8.4-10.2); Hemolysis Index 1
[2019-08-20 00:02] LABS: ABG Base Excess 1.7 mmol/L (-2.0-3.0); ABG HCO3 28.9 mmol/L (20.0-26.0); ABG Methemoglobin 0.6 % (0.0-1.5); ABG PCO2 56.8 mm Hg; ABG PH 7.324 pH Units (7.350-7.450); ABG PO2 118.2 mm Hg (80.0-90.0)
--- NOTE | 2019-08-20 01:22 | Cat Scan Report ---
CTA chest with contrast INDICATION : elevated d-dimer recent hospitalization. TECHNIQUE: Axial imaging performed through the chest, with contrast bolus timing set to maximize opa cification of the pulmonary arteries. 3-plane MIP reformatted images were obtained. All CT scans at this location are performed using CT dose reduction for ALARA by means of automated exposure control. 100 mL of intravenous contrast administered. COMPARISON: None FINDINGS: Bolus: Contrast bolus timing is adequate. PTE: No filling defect is present to suggest PTE. Mediastinum: Heart and great vessels appear normal. No pathologic mediastinal adenopathy. Lungs: Advanced emphysema, with streaky subpleural airspace disease in the anterior aspect of the ri ght upper lobe. There is also a pleural-based 4 mm nodule as seen on image #269 of series #3 which ma y represent an intrapulmonary lymph node given the location. Lungs are otherwise clear. Upper abdomen: Limited imaging of the upper abdomen shows nothing acute. A tiny rounded hyperdensit y in the posterior hepatic segment is noted and could represent a flash fill hemangioma. There are al so at least a couple small cysts. Small renal cysts are present. The kidneys appear slightly striated , as well. Bones: Degenerative changes in the spine with nothing acute. IMPRESSION: 1. Negative for PTE. 2. Advanced emphysema with streaky right upper lobe airspace disease which may at least in part refle ct atelectasis/scarring. 3. Incidental findings in the abdomen as detailed. Striated appearance of the kidneys can be seen wit h pyelonephritis--correlate with urinalysis findings. Signer Name: Brady Norman MD Signed: 08/20/2019 1:17 AM Workstation Name: [id number]
--- NOTE | 2019-08-20 02:40 | History and Physical Report ---
History of Present Illness History of present illness: 64 -year-old woman with a history of COPD , asthma comes emergency room with complaints of shortness of breath. Symptoms started 2 days ago, denies cough, fever or chills. Patient arriving the emergency room in respiratory distress, she was placed on BiPAP, given steroids, nebulizer treatments. Patient was discharged from the hospital on July 29, she was admitted for pneumonia, sep sis, stated that she is completed her antibiotic but she never felt as if she was back to her baseline after discharge. patient is being admitted for COPD exacerbation Review of systems Constitutional: no weight loss, chills, fever Ears, eyes, nose, mouth and throat: no nasal congestion, no nasal discharge, no sinus pressure, no vision change, no red eye. Neck: No neck pain or rigidity. Cardiovascular: no chest pain, palpitations Respiratory: + cough, shortness of breath Gastrointestinal: no abdominal pain hematochezia Genitourinary : no frequency , no hematuria Musculoskeletal: no joint swelling or muscle ache Integumentary: no rash, no pruritis Neurological: no parathesias, no numbness, no focal weakness Endocrine: no cold or heat intolerance, no polyuria or polydipsia Hematologic/Lymphatic: no easy bruising, no easy bleeding, no gland swelling Allergic/Immunologic: no urticaria, no angioedema. PAST MEDICAL HISTORY: asthma COPD PAST SURGICAL HISTORY: None SOCIAL HISTORY: No alcohol, no drugs, quit tobacco Y HISTORY: Hypertension Medications and Allergies Allergies Allergy/AdvReac Type Severity Reaction Status Date / Time No Known Allergies Allergy Verified 01/31/19 20:27 Home Medications Medication Instructions Recorded Confirmed Last Taken Type Acetaminophen [Acetaminophen TAB] 325 mg PO Q4H PRN #30 tablet 06/13/17 Unknown Rx ALBUTEROL NEB's [Proventil 0.083% 2.5 mg IH TID PRN #20 neb 07/28/19 Unknown Rx NEBS] Albuterol INH(or & Nicu Only) 2 puff IH QID PRN #1 unit 07/28/19 Unknown Rx [ProAir HFA Inhaler] Arformoterol Nebu [Brovana Nebu] 15 mcg IH Q12HR #7 day 07/28/19 Unknown Rx Budesonide [Pulmicort Respules] 0.5 mg IH Q12HR #7 day 07/28/19 Unknown Rx Nystatin [Nystatin SUSP] 500,000 unit PO QID 5 Days 07/28/19 Unknown Rx Tiotropium [Spiriva] 18 mcg IH QDAY #30 cap 07/28/19 Unknown Rx levoFLOXacin [Levaquin] 750 mg PO QDAY #5 tablet 07/28/19 Unknown Rx Active Meds: Active Medications Enoxaparin Sodium (Enoxaparin) 30 mg SUB-Q QDAY ARIELLA Levofloxacin/Dextrose (Levaquin 750mg/150ml) 750 mg in 150 mls @ 100 mls/hr IV ONCE ONE; Protocol Stop: 08/20/19 03:33 Methylprednisolone Sodium Succinate (Solu-Medrol) 125 mg IV Q6HR ARIELLA Exam - Physical Exam Narrative exam: Gen. appearance: Patient lying in bed, no apparent distress HEENT: Normocephalic, atraumatic, pupils equally round and reactive to light, eyes are , extraocular movement intact, and no sclericterus,. No JVD or thyromegaly or nodule,neck supple, no carotid bruit ,mucous membranes moist, no exudate or erythema Heart: S1, S2, regular rate and rhythm Lungs: Wheezing, coarse breath sounds bilaterally, breathing comfortable Abdomen: Positive bowel sounds, non-tender, nondistended, no organomegaly Extremity:no edema cyanosis, clubbing Skin: no rash, dry, warm Neuro: Cranial nerves 2-12 intact, motor and sensory intact - Constitutional Vitals: Temp Pulse Resp BP Pulse Ox 98.0 F 128 H 11 L 116/82 98 08/19/19 22:36 08/20/19 02:15 08/20/19 02:15 08/20/19 02:15 08/20/19 02:15 Results - Labs CBC & Chem 7: 08/19/19 22:58 08/19/19 22:58 Labs: Abnormal lab results 08/19/19 08/19/19 08/19/19 Range/Units 22:58 22:58 22:58 RDW 16.2 H (13.2-15.2) % Eos % (Auto) 5.0 H (0.0-4.3) % Eos # 0.5 H (0.0-0.4) K/mm3 D-Dimer 738.56 H (0-234) ng/mlDDU ABG pH (7.350-7.450) pH Units ABG pO2 (80.0-90.0) mm Hg ABG HCO3 (20.0-26.0) mmol/L Potassium 3.3 L (3.6-5.0) mmol/L Creatinine 0.6 L (0.7-1.2) mg/dL Glucose 144 H (65-100) mg/dL 08/19/19 Range/Units 23:30 RDW (13.2-15.2) % Eos % (Auto) (0.0-4.3) % Eos # (0.0-0.4) K/mm3 D-Dimer (0-234) ng/mlDDU ABG pH 7.324 L (7.350-7.450) pH Units ABG pO2 118.2 H (80.0-90.0) mm Hg ABG HCO3 28.9 H (20.0-26.0) mmol/L Potassium (3.6-5.0) mmol/L Creatinine (0.7-1.2) mg/dL Glucose (65-100) mg/dL - Imaging and Cardiology Chest x-ray: report reviewed CT scan - chest: report reviewed Assessment and Plan Assessment Acute respiratory distress failure/asthma exacerbation Continue BiPAP, start high-dose steroids, nebulizer treatments Striated kidneys Check urinalysis DVT prophylaxis
[2019-08-20] MEDS: methylPREDNISolone Sod Succinate 125 MG/2 ML INJ IV SCH ×3 (03:32→23:43)
[2019-08-20] MEDS ORDERED: ACETAMINOPHEN 325 MG TAB PO PRN (03:43)
[2019-08-20] MEDS ORDERED: ONDANSETRON 4 MG/2 ML INJ IV PRN (03:43)
[2019-08-20 04:34] LABS: Hematocrit 36.1 % (30.3-42.9); Mean Corpuscular HGB Conc 33 % (30-34); Mean Corpuscular Volume 88 fl (79-97); Platelet Count 270 K/mm3 (140-440); Red Blood Count 4.08 M/mm3 (3.65-5.03)
[2019-08-20 04:55] LABS: BUN/Creatinine Ratio 16; Blood Urea Nitrogen 11 mg/dL (7-17); Calcium 9.1 mg/dL (8.4-10.2); Hemolysis Index 25
[2019-08-20] MEDS: IPRATROPIUM 0.02% NEBU 2.5 ML IH SCH ×3 (05:15→12:08)
[2019-08-20 06:41] LABS: Basophils % (Manual) 0 % (0.0-1.8); Total Cells Counted 100
[2019-08-20 06:42] LABS: Eosinophils % (Manual) 0 % (0.0-4.3)
[2019-08-20 06:44] LABS: Platelet Estimate Consistent w Auto; RBC Morphology Normal
[2019-08-20] MEDS: ENOXAPARIN 30 MG/0.3 ML INJ SUB-Q SCH ×2 (09:21→09:30)
--- NOTE | 2019-08-20 09:29 | Event Note ---
Date: 08/20/19 Patient with asthma/COPD exacerbation. I have seen and examined her. Continue current management.
[2019-08-20] MEDS ORDERED: ALBUTEROL 2.5 MG/3 ML NEBU IH PRN (14:06)
[2019-08-20] MEDS ORDERED: IPRATROPIUM/ALBUTEROL SULFATE 3 ML AMPUL.NEB IH SCH (14:15)
[2019-08-20 15:01] LABS: Bilirubin,Urine NEG (Negative); Blood,Urine NEG (Negative); Color,Urine Yellow (Yellow); Mucus,Urine 1+ /HPF; Protein,Urine <15 mg/dL mg/dL (Negative); Urobilinogen,Urine < 2.0 mg/dL (<2.0)
--- NOTE | 2019-08-20 15:29 | Consultation ---
History of Present Illness Consult date: 08/20/19 Requesting physician: ARVIN AMES Reason for consult: asthma, COPD History of present illness: PULMONARY/CCM CONSULT NOTE (Full dictation # [id number]) Please see dictated notes for full details Medications and Allergies Allergies Allergy/AdvReac Type Severity Reaction Status Date / Time No Known Allergies Allergy Verified 01/31/19 20:27 Home Medications Medication Instructions Recorded Confirmed Last Taken Type Acetaminophen [Acetaminophen TAB] 325 mg PO Q4H PRN #30 tablet 06/13/17 08/20/19 Unknown Rx ALBUTEROL NEB's [Proventil 0.083% 2.5 mg IH TID PRN #20 neb 07/28/19 08/20/19 08/19/19 08:00 Rx NEBS] Albuterol INH(or & Nicu Only) 2 puff IH QID PRN #1 unit 07/28/19 08/20/19 Unknown Rx [ProAir HFA Inhaler] Arformoterol Nebu [Brovana Nebu] 15 mcg IH Q12HR #7 day 07/28/19 08/20/19 Unknown Rx Budesonide [Pulmicort Respules] 0.5 mg IH Q12HR #7 day 07/28/19 08/20/19 Unknown Rx Nystatin [Nystatin SUSP] 500,000 unit PO QID 5 Days 07/28/19 08/20/19 Unknown Rx Tiotropium [Spiriva] 18 mcg IH QDAY #30 cap 07/28/19 08/20/19 08/19/19 Rx levoFLOXacin [Levaquin] 750 mg PO QDAY #5 tablet 07/28/19 08/20/19 Unknown Rx Active Meds: Active Medications Acetaminophen (Tylenol) 650 mg PO Q4H PRN PRN Reason: Pain MILD(1-3)/Fever >100.5/MOSLEY Albuterol (Proventil) 2.5 mg IH Q4HRT PRN PRN Reason: Shortness Of Breath Albuterol/Ipratropium (Duoneb *Not For Prn Use*) 1 ampul IH Q6HRT [facility] Enoxaparin Sodium (Enoxaparin) 30 mg SUB-Q QDAY [facility] Last Admin: 08/20/19 09:30 Dose: Not Given Documented by: Methylprednisolone Sodium Succinate (Solu-Medrol) 125 mg IV Q6HR [facility] Last Admin: 08/20/19 12:24 Dose: 125 mg Documented by: Ondansetron HCl (Zofran) 4 mg IV Q8H PRN PRN Reason: Nausea And Vomiting Sodium Chloride (Sodium Chloride Flush Syringe 10 Ml) 10 ml IV BID [facility] Last Admin: 08/20/19 09:22 Dose: 10 ml Documented by: Sodium Chloride (Sodium Chloride Flush Syringe 10 Ml) 10 ml IV PRN PRN PRN Reason: LINE FLUSH Physical Examination Vital signs: Vital Signs Temp Pulse Resp BP Pulse Ox 98.0 F 126 H 30 H 146/75 100 08/19/19 22:36 08/19/19 22:36 08/19/19 22:36 08/19/19 22:36 08/19/19 22:36 Results - Laboratory Findings CBC and BMP: 08/20/19 04:22 08/20/19 04:22 ABG ABG pH 7.324 pH Units (7.350-7.450) L 08/19/19 23:30 ABG pCO2 56.8 mm Hg 08/19/19 23:30 ABG pO2 118.2 mm Hg (80.0-90.0) H 08/19/19 23:30 ABG O2 Saturation 98.0 % (95.0-99.0) 08/19/19 23:30 PT/INR, D-dimer D-Dimer 738.56 ng/mlDDU (0-234) H 08/19/19 22:58 Abnormal lab findings: Abnormal Labs 08/19/19 08/19/19 08/19/19 22:58 22:58 22:58 RDW 16.2 H Eos % (Auto) 5.0 H Eos # 0.5 H Seg Neuts % (Manual) Lymphocytes % (Manual) Lymphocytes # (Manual) D-Dimer 738.56 H ABG pH ABG pO2 ABG HCO3 Potassium 3.3 L Creatinine 0.6 L Glucose 144 H Ur Specific [place] 08/19/19 08/20/19 08/20/19 23:30 04:22 04:22 RDW 16.0 H Eos % (Auto) Eos # Seg Neuts % (Manual) 95.0 H Lymphocytes % (Manual) 4.0 L Lymphocytes # (Manual) 0.2 L D-Dimer ABG pH 7.324 L ABG pO2 118.2 H ABG HCO3 28.9 H Potassium Creatinine Glucose 184 H Ur Specific [place] 08/20/19 13:30 RDW Eos % (Auto) Eos # Seg Neuts % (Manual) Lymphocytes % (Manual) Lymphocytes # (Manual) D-Dimer ABG pH ABG pO2 ABG HCO3 Potassium Creatinine Glucose Ur Specific [place] 1.035 H
[2019-08-20] MEDS: BUDESONIDE 0.5 MG/2 ML NEBU IH SCH (21:48)
[2019-08-20] MEDS: ARFORMOTEROL 15 MCG/2 ML NEBU IH SCH (21:48)
[2019-08-20] MEDS: IPRATROPIUM/ALBUTEROL SULFATE 3 ML AMPUL.NEB IH SCH (21:48)
--- NOTE | 2019-08-21 02:25 | Consultation ---
CONSULTING PHYSICIAN: Dr. Tovar. REASON FOR CONSULTATION: Acute COPD exacerbation. CHIEF COMPLAINT AND HISTORY OF PRESENT ILLNESS: The patient is a 64-year-old -[place] female with past medical history significant for chronic obstructive lung disease, came into the emergency room complaining of increasing shortness of breath for about a couple of days, increasing dyspnea on exertion, feels like she cannot get the air out of her chest. Denied any chest pain. Denied fevers or chills. She denied any nausea, vomiting, or overt aspiration. She is on short-acting bronchodilators as well as longacting bronchodilators at home, but is not on any inhaled corticosteroids. She states that she is usually also on a little bit of baseline prednisone at home. She said that she has a cough that is now productive and was not productive before, it is productive of occasionally brownish, but mostly cream colored phlegm. No gross or streaky hemoptysis. In the emergency room, she was evaluated and admitted with a COPD exacerbation. Of note, she had been treated for pneumonia in July, she was discharged on home oxygen at that time, but admits to running out of the oxygen and not using it. She states she sees a vaccine specialist in an outside clinic facility and is as compliant with the vaccine specialist as possible. She has a 20+ pack year tobacco smoking history, but quit smoking 2 years ago after her COPD diagnosis. When I stopped by to see her, she was resting in bed. She was sitting up in bed, still with increased work of breathing. Occasional accessory muscle use and talking to me with occasionally interrupted sentences, but overall was feeling better than at presentation. This really is as much of the history of presentation as I have. Of note, she also denies being up-to-date on her flu or pneumonia vaccination. PAST MEDICAL HISTORY: COPD. PAST SURGICAL HISTORY: Denies. MEDICATIONS: She was on at the time I stopped by to see her were reviewed. Pertinent medications include the following: Tylenol 650 mg p.o. q. 4 hours p.r.n. mild pain or fevers, albuterol 2.5 mg nebulized q. 4 hours p.r.n. shortness of breath, DuoNeb nebulizer treatments q. 6 hours scheduled, Lovenox 30 mg subcutaneous daily, Solu-Medrol 125 mg IV q. 6 hours, Zofran 4 mg IV q. 8 hours p.r.n. nausea and vomiting. ALLERGIES: No known drug allergies. DIET: Thin, cachectic lady. Denies acute weight loss or gain in the preceding few weeks to months. FAMILY AND SOCIAL HISTORY: Lives in the community. She has a 20+ pack year tobacco smoking history. Does not smoke currently. Denies alcohol or illicit drug use or abuse. Family history is significant for hypertension. REVIEW OF SYSTEMS: No loss of consciousness. No new onset seizures. No new onset focal weakness. No gross hematochezia or melena. No gross hematuria or dysuria. No new onset leg pain or swelling either unilaterally or bilaterally. Denies heat or cold intolerance. Denies polydipsia. Denies polyuria. Denies any neck pain or stiffness. Complete 13-system review of systems obtained. Pertinent positives and/or negatives as in body of history above, otherwise noncontributory. PHYSICAL EXAMINATION: VITAL SIGNS: At presentation, she was afebrile, temperature 98.0 degrees Fahrenheit with a pulse of 126, respiratory rate of 30, blood pressure 146/75, O2 sats were 100%, inspired oxygen concentration at that time was not recorded. When I stopped by to see her, O2 sats were 98% on 3 liters nasal cannula. GENERAL: Again, elderly looking thin -[place] female, normocephalic, atraumatic, talking to me with slightly interrupted sentences and with mildly increased respiratory effort at rest. HEAD, EYES, EARS, NOSE AND THROAT: She is anicteric. No conjunctival erythema. Oropharynx was moist. Mallampati #2 oropharynx. No gross jugular venous distention, no thyromegaly. Grossly, no palpable lymph nodes in the supraclavicular or submandibular lymph node chains. LUNGS: Auscultation of both lung [place] significant for diminished breath sounds, prolonged expiratory phase. No active wheezing. HEART: Heart sounds 1 and 2 are heard. They were regular in rate and rhythm at the time of my evaluation without overt rubs or murmurs. She was having mild epigastric tenderness, otherwise. ABDOMEN: Flat, soft, bowel sounds are positive. No palpable hepatosplenomegaly. EXTREMITIES: Without overt digital clubbing or cyanosis and no pedal edema. Pedal pulses were 2+ bilaterally. NEUROLOGIC: Pupils are equal, round, about 5 mm, reactive to light. Extraocular muscle movements were intact. She moves all 4 extremities spontaneously. SKIN: Poor turgor; however, without overt cellulitis or rash. PSYCHIATRIC: Her mood was normal. Affect was appropriate. LABORATORY DATA: From my review are as follows: Admission white cell count 10,300, hemoglobin 12.6, hematocrit 38.0, platelet count 294. No band forms on the manual differential. D-dimer was elevated at 739. Arterial blood gas showed a pH of 7.32, pCO2 of 57, pO2 of 118 that was on 2 liters nasal cannula. Serum sodium was 141, potassium 3.3, chloride 99, bicarbonate 27, BUN 11, creatinine 0.6, glucose was 144. Cardiac enzymes within normal limits. Liver function test within normal limits. Urinalysis was unremarkable. Two sets of blood cultures, no growth to date. Chest x-ray was done. I have reviewed the chest x-ray. I have also reviewed the radiologist's interpretation. Chest x-ray essentially shows chronic COPD changes, no acute process. A CT angiogram of the chest was also done. I have reviewed the CT angiogram as well as the radiologist's interpretation. I do not see any gross filling defects consistent with pulmonary emboli. There is an area of subpleural disease in the anterior aspect of the right upper lobe/atelectasis. I do not have any other CT scan to compare it against and then there is evidence of paraseptal emphysema. No gross pneumothorax, no gross bony fracture. ASSESSMENT: 1. Acute chronic obstructive pulmonary disease exacerbation. 2. Acute hypoxemic respiratory failure. 3. Chronic hypercapnic respiratory failure. 4. History of tobacco use disorder. 5. Elevated D-dimer. 6. Mild respiratory acidosis. PLAN: I will go ahead and schedule long-acting bronchodilators as well as inhaled corticosteroids. I will reduce the short-acting DuoNebs to about t.i.d. We will continue systemic steroids, but I would taper the dose to about 60 mg IV q. 8 acutely. We will get a CRP level or a procalcitonin level to help make clinical decisions. We will continue daily Levaquin and treat x 5 days for empiric community-acquired pneumonia treatment in a patient with severe home oxygen, COPD exacerbation. She will be placed on GI prophylaxis, especially with her being on systemic steroids. She is on DVT prophylaxis, continue to stop alcohol, abstinence has been strongly counseled. Flu and pneumonia vaccination will be addressed per protocol. Thank you very much for the consult. We will follow along. We will make further recommendations as picture progresses/becomes clearer. JOB# [id number] BRADFORD/JOHN CONTRERAS
[2019-08-21 05:46] LABS: Bilirubin,Urine NEG (Negative); Blood,Urine NEG (Negative); Color,Urine Yellow (Yellow); Mucus,Urine 3+ /HPF
[2019-08-21] MEDS ORDERED: POLYETHYLENE GLYCOL 3350 17 GM POWDER PO PRN (09:13)
--- NOTE | 2019-08-21 09:13 | Progress Note ---
Assessment and Plan Assessment and plan: Acute respiratory failurre due to asthma exacerbation Admitted to [facility] Solu-medrol iv Duoneb Q 6h supplemental Oxygen Asthma exacerbation Pulm consulted Continue steroids and Nebs hypokalemia Now resolved History Interval history: Shortness of breath improved Hospitalist Physical - Physical exam Narrative exam: GEN: Not in acute distress, lying in bed, HEENT: Normocephalic, atraumatic, Neck: supple, No JVD Lungs: Bilateral rhonchi, wheeze, heart;S1 and S2 reg, no murmurs, rubs or gallop Abd:soft, non tender, non distended, normal bowel sounds Ext: No edema, no clubbing, no cyanosis Neuro: Awake,alert, oriented X 3, no focal neurological signs - Constitutional Vitals: Temp Pulse Resp BP Pulse Ox 98.1 F 99 H 20 111/72 97 08/21/19 05:01 08/21/19 06:00 08/21/19 05:01 08/21/19 05:01 08/21/19 05:01 Results - Labs CBC & Chem 7: 08/20/19 04:22 08/20/19 04:22 Labs: Laboratory Last Values WBC 5.8 K/mm3 (4.5-11.0) 08/20/19 04:22 RBC 4.08 M/mm3 (3.65-5.03) 08/20/19 04:22 Hgb 12.0 gm/dl (10.1-14.3) 08/20/19 04:22 Hct 36.1 % (30.3-42.9) 08/20/19 04:22 MCV 88 fl (79-97) 08/20/19 04:22 MCH 30 pg (28-32) 08/20/19 04:22 MCHC 33 % (30-34) 08/20/19 04:22 RDW 16.0 % (13.2-15.2) H 08/20/19 04:22 Plt Count 270 K/mm3 (140-440) 08/20/19 04:22 Lymph % (Auto) 30.3 % (13.4-35.0) 08/19/19 22:58 [place] % (Auto) 4.9 % (0.0-7.3) 08/19/19 22:58 Eos % (Auto) 5.0 % (0.0-4.3) H 08/19/19 22:58 Baso % (Auto) 0.4 % (0.0-1.8) 08/19/19 22:58 Lymph # 3.1 K/mm3 (1.2-5.4) 08/19/19 22:58 [place] # 0.5 K/mm3 (0.0-0.8) 08/19/19 22:58 Eos # 0.5 K/mm3 (0.0-0.4) H 08/19/19 22:58 Baso # 0.0 K/mm3 (0.0-0.1) 08/19/19 22:58 Add Manual Diff Complete 08/20/19 04:22 Total Counted 100 08/20/19 04:22 Seg Neutrophils % Drawing In Hand 08/20/19 04:22 Seg Neuts % (Manual) 95.0 % (40.0-70.0) H 08/20/19 04:22 Band Neutrophils % 0 % 08/20/19 04:22 Lymphocytes % (Manual) 4.0 % (13.4-35.0) L 08/20/19 04:22 Reactive Lymphs % (Man) 0 % 08/20/19 04:22 Monocytes % (Manual) 1.0 % (0.0-7.3) 08/20/19 04:22 Eosinophils % (Manual) 0 % (0.0-4.3) 08/20/19 04:22 Basophils % (Manual) 0 % (0.0-1.8) 08/20/19 04:22 Metamyelocytes % 0 % 08/20/19 04:22 Myelocytes % 0 % 08/20/19 04:22 Promyelocytes % 0 % 08/20/19 04:22 Blast Cells % 0 % 08/20/19 04:22 Nucleated RBC % Not Reportable 08/20/19 04:22 Seg Neutrophils # 6.1 K/mm3 (1.8-7.7) 08/19/19 22:58 Seg Neutrophils # Man 5.5 K/mm3 (1.8-7.7) 08/20/19 04:22 Band Neutrophils # 0.0 K/mm3 08/20/19 04:22 Lymphocytes # (Manual) 0.2 K/mm3 (1.2-5.4) L 08/20/19 04:22 Abs React Lymphs (Man) 0.0 K/mm3 08/20/19 04:22 Monocytes # (Manual) 0.1 K/mm3 (0.0-0.8) 08/20/19 04:22 Eosinophils # (Manual) 0.0 K/mm3 (0.0-0.4) 08/20/19 04:22 Basophils # (Manual) 0.0 K/mm3 (0.0-0.1) 08/20/19 04:22 Metamyelocytes # 0.0 K/mm3 08/20/19 04:22 Myelocytes # 0.0 K/mm3 08/20/19 04:22 Promyelocytes # 0.0 K/mm3 08/20/19 04:22 Blast Cells # 0.0 K/mm3 08/20/19 04:22 WBC Morphology Not Reportable 08/20/19 04:22 Hypersegmented Neuts Not Reportable 08/20/19 04:22 Hyposegmented Neuts Not Reportable 08/20/19 04:22 Hypogranular Neuts Not Reportable 08/20/19 04:22 Smudge Cells Not Reportable 08/20/19 04:22 Toxic Granulation Not Reportable 08/20/19 04:22 Toxic Vacuolation Not Reportable 08/20/19 04:22 Dohle Bodies Not Reportable 08/20/19 04:22 Pelger-Huet Anomaly Not Reportable 08/20/19 04:22 Opal Rods Not Reportable 08/20/19 04:22 Platelet Estimate Consistent w auto 08/20/19 04:22 Clumped Platelets Not Reportable 08/20/19 04:22 Plt Clumps, EDTA Not Reportable 08/20/19 04:22 Large Platelets Not Reportable 08/20/19 04:22 Giant Platelets Not Reportable 08/20/19 04:22 Platelet Satelliting Not Reportable 08/20/19 04:22 Plt Morphology Comment Not Reportable 08/20/19 04:22 RBC Morphology Normal 08/20/19 04:22 Dimorphic RBCs Not Reportable 08/20/19 04:22 Polychromasia Not Reportable 08/20/19 04:22 Hypochromasia Not Reportable 08/20/19 04:22 Poikilocytosis Not Reportable 08/20/19 04:22 Anisocytosis Not Reportable 08/20/19 04:22 Microcytosis Not Reportable 08/20/19 04:22 Macrocytosis Not Reportable 08/20/19 04:22 Spherocytes Not Reportable 08/20/19 04:22 Pappenheimer Bodies Not Reportable 08/20/19 04:22 Sickle Cells Not Reportable 08/20/19 04:22 Target Cells Not Reportable 08/20/19 04:22 Tear Drop Cells Not Reportable 08/20/19 04:22 Ovalocytes Not Reportable 08/20/19 04:22 Helmet Cells Not Reportable 08/20/19 04:22 Shrestha-Leona Bodies Not Reportable 08/20/19 04:22 [place] Rings Not Reportable 08/20/19 04:22 Zoya Cells Not Reportable 08/20/19 04:22 Bite Cells Not Reportable 08/20/19 04:22 Crenated Cell Not Reportable 08/20/19 04:22 Elliptocytes Not Reportable 08/20/19 04:22 Acanthocytes (Spur) Not Reportable 08/20/19 04:22 Rouleaux Not Reportable 08/20/19 04:22 Hemoglobin C Crystals Not Reportable 08/20/19 04:22 Schistocytes Not Reportable 08/20/19 04:22 Malaria parasites Not Reportable 08/20/19 04:22 Joel Bodies Not Reportable 08/20/19 04:22 Hem Pathologist Commnt No 08/20/19 04:22 D-Dimer 738.56 ng/mlDDU (0-234) H 08/19/19 22:58 ABG pH 7.324 pH Units (7.350-7.450) L 08/19/19 23:30 ABG pCO2 56.8 mm Hg 08/19/19 23:30 ABG pO2 118.2 mm Hg (80.0-90.0) H 08/19/19 23:30 ABG HCO3 28.9 mmol/L (20.0-26.0) H 08/19/19 23:30 ABG O2 Saturation 98.0 % (95.0-99.0) 08/19/19 23:30 ABG O2 Content 17.2 (0.0-44) 08/19/19 23:30 ABG Base Excess 1.7 mmol/L (-2.0-3.0) 08/19/19 23:30 ABG Hemoglobin 12.6 gm/dl (12.0-16.0) 08/19/19 23:30 ABG Carboxyhemoglobin 1.3 % (0.0-5.0) 08/19/19 23:30 ABG Methemoglobin 0.6 % (0.0-1.5) 08/19/19 23:30 Oxyhemoglobin 96.1 % (95.0-99.0) 08/19/19 23:30 FiO2 28 % 08/19/19 23:30 Sodium 140 mmol/L (137-145) 08/20/19 04:22 Potassium 3.6 mmol/L (3.6-5.0) 08/20/19 04:22 Chloride 98.9 mmol/L (98-107) 08/20/19 04:22 Carbon Dioxide 26 mmol/L (22-30) 08/20/19 04:22 Anion Gap 19 mmol/L 08/20/19 04:22 BUN 11 mg/dL (7-17) 08/20/19 04:22 Creatinine 0.7 mg/dL (0.7-1.2) 08/20/19 04:22 Estimated GFR > 60 ml/min 08/20/19 04:22 BUN/Creatinine Ratio 16 % 08/20/19 04:22 Glucose 184 mg/dL (65-100) H 08/20/19 04:22 Calcium 9.1 mg/dL (8.4-10.2) 08/20/19 04:22 Total Bilirubin 0.20 mg/dL (0.1-1.2) 08/19/19 22:58 AST 21 units/L (5-40) 08/19/19 22:58 ALT 12 units/L (7-56) 08/19/19 22:58 Alkaline Phosphatase 95 units/L (35-129) 08/19/19 22:58 Troponin T < 0.010 ng/mL (0.00-0.029) 08/20/19 01:16 NT-Pro-B Natriuret Pep 37.33 pg/mL (0-900) 08/19/19 22:58 Total Protein 7.8 g/dL (6.3-8.2) 08/19/19 22:58 Albumin 4.2 g/dL (3.9-5) 08/19/19 22:58 Albumin/Globulin Ratio 1.2 % 08/19/19 22:58 Urine Color Yellow (Yellow) 08/21/19 05:28 Urine Turbidity Slightly cloudy (Clear) 08/21/19 05:28 Urine pH 5.0 (5.0-7.0) 08/21/19 05:28 Ur Specific [place] 1.029 (1.003-1.030) 08/21/19 05:28 Urine Protein 30 mg/dl mg/dL (Negative) 08/21/19 05:28 Urine Glucose (UA) Neg mg/dL (Negative) 08/21/19 05:28 Urine Ketones Tr mg/dL (Negative) 08/21/19 05:28 Urine Blood Neg (Negative) 08/21/19 05:28 Urine Nitrite Neg (Negative) 08/21/19 05:28 Urine Bilirubin Neg (Negative) 08/21/19 05:28 Urine Urobilinogen 2.0 mg/dL (<2.0) 08/21/19 05:28 Ur Leukocyte Esterase Neg (Negative) 08/21/19 05:28 Urine WBC (Auto) 3.0 /HPF (0.0-6.0) 08/21/19 05:28 Urine RBC (Auto) 1.0 /HPF (0.0-6.0) 08/21/19 05:28 U Epithel Cells (Auto) 1.0 /HPF (0-13.0) 08/21/19 05:28 Urine Mucus 3+ /HPF 08/21/19 05:28 Active Medications - Current Medications Current Medications: Generic Name Dose Route Start Last Admin Trade Name Freq PRN Reason Stop Dose Admin Acetaminophen 650 mg 08/20/19 03:43 08/20/19 19:36 Tylenol PO 650 mg Q4H PRN Administration Pain MILD(1-3)/Fever >100.5/MOSLEY Albuterol 2.5 mg 08/20/19 14:06 Proventil IH Q4HRT PRN Shortness Of Breath Albuterol/Ipratropium 1 ampul 08/20/19 20:00 08/20/19 21:48 Duoneb *Not For Prn Use* IH 1 ampul TIDRT [facility] Administration Arformoterol Tartrate 15 mcg 08/20/19 20:00 08/20/19 21:48 Brovana Nebu IH 15 mcg Q12HRT [facility]A Administration Budesonide 0.5 mg 08/20/19 20:00 08/20/19 21:48 Pulmicort IH 0.5 mg Q12HRT [facility] Administration Enoxaparin Sodium 30 mg 08/20/19 10:00 08/20/19 09:30 Enoxaparin SUB-Q Not Given QDAY [facility] Famotidine 20 mg 08/21/19 10:00 Pepcid PO QDAY [facility] Levofloxacin 500 mg 08/21/19 10:00 Levaquin PO 08/24/19 10:01 Q24HR [facility] Methylprednisolone Sodium Succinate 60 mg 08/21/19 00:00 08/20/19 23:43 Solu-Medrol IV 60 mg Q8HRT [facility] Administration Ondansetron HCl 4 mg 08/20/19 03:43 Zofran IV Q8H PRN Nausea And Vomiting Sodium Chloride 10 ml 08/20/19 10:00 08/20/19 23:44 Sodium Chloride Flush Syringe 10 Ml IV 10 ml BID ARIE[facility]A Administration Sodium Chloride 10 ml 08/20/19 03:43 Sodium Chloride Flush Syringe 10 Ml IV PRN PRN LINE FLUSH
[2019-08-21] MEDS: BUDESONIDE 0.5 MG/2 ML NEBU IH SCH ×2 (09:59→20:26)
[2019-08-21] MEDS: IPRATROPIUM/ALBUTEROL SULFATE 3 ML AMPUL.NEB IH SCH ×3 (10:00→20:26)
[2019-08-21] MEDS: ARFORMOTEROL 15 MCG/2 ML NEBU IH SCH ×2 (10:00→20:26)
[2019-08-21] MEDS: FAMOTIDINE 20 MG TAB PO SCH (11:00)
[2019-08-21] MEDS: levoFLOXacin 500 MG TAB PO SCH (11:00)
[2019-08-21] MEDS: ENOXAPARIN 30 MG/0.3 ML INJ SUB-Q SCH (11:02)
[2019-08-21] MEDS: methylPREDNISolone Sod Succinate 125 MG/2 ML INJ IV SCH ×2 (11:11→15:32)
--- NOTE | 2019-08-21 14:06 | Progress Note ---
Assessment and Plan Acute chronic obstructive pulmonary disease exacerbation. Acute hypoxemic respiratory failure. Chronic hypercapnic respiratory failure. History of tobacco use disorder. Elevated D-dimer. Mild respiratory acidosis. - continue supplemental oxygen as needed to keep O2 sat's > 90% - continue bronchodilators (LIZ & LABA) with pulmonary hygiene per RT - continue systemic steroids with slow taper - continue inhaled corticosteroids - complete empiric CAP directed antibiotics for severe COPD exacerbation with Levaquin - accuchecks with SSI for target BG < 180 mg/dl - PT/OT as tolerated - mobility protocols for pressure ulcer prophylaxis - GI & VTE prophylaxis - tobacco abstinence strongly counseled at bedside - Flu & Pneumovax addressed per protocol ... re-evaluate in am & prn Subjective Date of service: 08/21/19 Principal diagnosis: AE-COPD; Ac hypoxemic & hypercapnic resp failure; Elevated D-dimer Interval history: Patient is seen today for: Acute chronic obstructive pulmonary disease exacerbation; Acute hypoxemic respiratory failure; Chronic hypercapnic respiratory failure; History of tobacco use disorder; Elevated D-dimer; Mild respiratory acidosis. Seen and examined at bedside; 24hour events reviewed; nursing and respiratory care staff consulted; no adverse overnight events reported to me; Objective Vital Signs - 12hr 08/21/19 08/21/19 08/21/19 05:01 06:00 08:05 Temperature 98.1 F 98.0 F Pulse Rate 99 H 99 H Pulse Rate [ Bilateral] Pulse Rate [ Radial] Respiratory 20 18 Rate Respiratory Rate [Bilateral ] Blood Pressure 111/72 121/65 O2 Sat by Pulse 97 Oximetry 08/21/19 08/21/19 09:59 10:00 Temperature Pulse Rate Pulse Rate [ 101 H Bilateral] Pulse Rate [ 98 H Radial] Respiratory 18 Rate Respiratory 18 Rate [Bilateral ] Blood Pressure O2 Sat by Pulse 99 98 Oximetry CBC and BMP: 08/20/19 04:22 08/20/19 04:22 ABG, PT/INR, D-dimer: ABG ABG pH 7.324 pH Units (7.350-7.450) L 08/19/19 23:30 ABG pCO2 56.8 mm Hg 08/19/19 23:30 ABG pO2 118.2 mm Hg (80.0-90.0) H 08/19/19 23:30 ABG O2 Saturation 98.0 % (95.0-99.0) 08/19/19 23:30 PT/INR, D-dimer D-Dimer 738.56 ng/mlDDU (0-234) H 08/19/19 22:58 Abnormal lab findings: Abnormal Labs 08/19/19 08/19/19 08/19/19 22:58 22:58 22:58 RDW 16.2 H Eos % (Auto) 5.0 H Eos # 0.5 H Seg Neuts % (Manual) Lymphocytes % (Manual) Lymphocytes # (Manual) D-Dimer 738.56 H ABG pH ABG pO2 ABG HCO3 Potassium 3.3 L Creatinine 0.6 L Glucose 144 H Ur Specific [place] 08/19/19 08/20/19 08/20/19 23:30 04:22 04:22 RDW 16.0 H Eos % (Auto) Eos # Seg Neuts % (Manual) 95.0 H Lymphocytes % (Manual) 4.0 L Lymphocytes # (Manual) 0.2 L D-Dimer ABG pH 7.324 L ABG pO2 118.2 H ABG HCO3 28.9 H Potassium Creatinine Glucose 184 H Ur Specific [place] 08/20/19 13:30 RDW Eos % (Auto) Eos # Seg Neuts % (Manual) Lymphocytes % (Manual) Lymphocytes # (Manual) D-Dimer ABG pH ABG pO2 ABG HCO3 Potassium Creatinine Glucose Ur Specific [place] 1.035 H
[2019-08-22] MEDS: methylPREDNISolone Sod Succinate 125 MG/2 ML INJ IV SCH ×4 (00:35→23:17)
[2019-08-22] MEDS: BUDESONIDE 0.5 MG/2 ML NEBU IH SCH ×2 (10:22→19:13)
[2019-08-22] MEDS: ARFORMOTEROL 15 MCG/2 ML NEBU IH SCH ×2 (10:22→19:13)
--- NOTE | 2019-08-22 10:24 | Progress Note ---
Assessment and Plan Assessment and plan: Acute respiratory failure due to asthma and COPD exacerbation Admitted to [facility] Solu-medrol iv Duoneb Q 6h supplemental Oxygen COPD/Asthma exacerbation Pulm consulted, following Continue steroids and Nebs Hypokalemia Now resolved Patient still has shortness of breath, wheezing, not stable for dc History Interval history: Still having shortness of breath Wheezing Hospitalist Physical - Physical exam Narrative exam: GEN: Not in acute distress, lying in bed, HEENT: Normocephalic, atraumatic, Neck: supple, No JVD Lungs: Bilateral rhonchi, wheeze, heart;S1 and S2 reg, no murmurs, rubs or gallop Abd:soft, non tender, non distended, normal bowel sounds Ext: No edema, no clubbing, no cyanosis Neuro: Awake,alert, oriented X 3, no focal neurological signs - Constitutional Vitals: Temp Pulse Resp BP Pulse Ox 98.6 F 85 18 129/79 95 08/22/19 07:51 08/22/19 07:51 08/22/19 07:51 08/22/19 07:51 08/22/19 07:51 Results - Labs CBC & Chem 7: 08/20/19 04:22 08/20/19 04:22 Labs: Laboratory Last Values WBC 5.8 K/mm3 (4.5-11.0) 08/20/19 04:22 RBC 4.08 M/mm3 (3.65-5.03) 08/20/19 04:22 Hgb 12.0 gm/dl (10.1-14.3) 08/20/19 04:22 Hct 36.1 % (30.3-42.9) 08/20/19 04:22 MCV 88 fl (79-97) 08/20/19 04:22 MCH 30 pg (28-32) 08/20/19 04:22 MCHC 33 % (30-34) 08/20/19 04:22 RDW 16.0 % (13.2-15.2) H 08/20/19 04:22 Plt Count 270 K/mm3 (140-440) 08/20/19 04:22 Lymph % (Auto) 30.3 % (13.4-35.0) 08/19/19 22:58 [place] % (Auto) 4.9 % (0.0-7.3) 08/19/19 22:58 Eos % (Auto) 5.0 % (0.0-4.3) H 08/19/19 22:58 Baso % (Auto) 0.4 % (0.0-1.8) 08/19/19 22:58 Lymph # 3.1 K/mm3 (1.2-5.4) 08/19/19 22:58 [place] # 0.5 K/mm3 (0.0-0.8) 08/19/19 22:58 Eos # 0.5 K/mm3 (0.0-0.4) H 08/19/19 22:58 Baso # 0.0 K/mm3 (0.0-0.1) 08/19/19 22:58 Add Manual Diff Complete 08/20/19 04:22 Total Counted 100 08/20/19 04:22 Seg Neutrophils % [place] 08/20/19 04:22 Seg Neuts % (Manual) 95.0 % (40.0-70.0) H 08/20/19 04:22 Band Neutrophils % 0 % 08/20/19 04:22 Lymphocytes % (Manual) 4.0 % (13.4-35.0) L 08/20/19 04:22 Reactive Lymphs % (Man) 0 % 08/20/19 04:22 Monocytes % (Manual) 1.0 % (0.0-7.3) 08/20/19 04:22 Eosinophils % (Manual) 0 % (0.0-4.3) 08/20/19 04:22 Basophils % (Manual) 0 % (0.0-1.8) 08/20/19 04:22 Metamyelocytes % 0 % 08/20/19 04:22 Myelocytes % 0 % 08/20/19 04:22 Promyelocytes % 0 % 08/20/19 04:22 Blast Cells % 0 % 08/20/19 04:22 Nucleated RBC % Not Reportable 08/20/19 04:22 Seg Neutrophils # 6.1 K/mm3 (1.8-7.7) 08/19/19 22:58 Seg Neutrophils # Man 5.5 K/mm3 (1.8-7.7) 08/20/19 04:22 Band Neutrophils # 0.0 K/mm3 08/20/19 04:22 Lymphocytes # (Manual) 0.2 K/mm3 (1.2-5.4) L 08/20/19 04:22 Abs React Lymphs (Man) 0.0 K/mm3 08/20/19 04:22 Monocytes # (Manual) 0.1 K/mm3 (0.0-0.8) 08/20/19 04:22 Eosinophils # (Manual) 0.0 K/mm3 (0.0-0.4) 08/20/19 04:22 Basophils # (Manual) 0.0 K/mm3 (0.0-0.1) 08/20/19 04:22 Metamyelocytes # 0.0 K/mm3 08/20/19 04:22 Myelocytes # 0.0 K/mm3 08/20/19 04:22 Promyelocytes # 0.0 K/mm3 08/20/19 04:22 Blast Cells # 0.0 K/mm3 08/20/19 04:22 WBC Morphology Not Reportable 08/20/19 04:22 Hypersegmented Neuts Not Reportable 08/20/19 04:22 Hyposegmented Neuts Not Reportable 08/20/19 04:22 Hypogranular Neuts Not Reportable 08/20/19 04:22 Smudge Cells Not Reportable 08/20/19 04:22 Toxic Granulation Not Reportable 08/20/19 04:22 Toxic Vacuolation Not Reportable 08/20/19 04:22 Dohle Bodies Not Reportable 08/20/19 04:22 Pelger-Huet Anomaly Not Reportable 08/20/19 04:22 Opal Rods Not Reportable 08/20/19 04:22 Platelet Estimate Consistent w auto 08/20/19 04:22 Clumped Platelets Not Reportable 08/20/19 04:22 Plt Clumps, EDTA Not Reportable 08/20/19 04:22 Large Platelets Not Reportable 08/20/19 04:22 Giant Platelets Not Reportable 08/20/19 04:22 Platelet Satelliting Not Reportable 08/20/19 04:22 Plt Morphology Comment Not Reportable 08/20/19 04:22 RBC Morphology Normal 08/20/19 04:22 Dimorphic RBCs Not Reportable 08/20/19 04:22 Polychromasia Not Reportable 08/20/19 04:22 Hypochromasia Not Reportable 08/20/19 04:22 Poikilocytosis Not Reportable 08/20/19 04:22 Anisocytosis Not Reportable 08/20/19 04:22 Microcytosis Not Reportable 08/20/19 04:22 Macrocytosis Not Reportable 08/20/19 04:22 Spherocytes Not Reportable 08/20/19 04:22 Pappenheimer Bodies Not Reportable 08/20/19 04:22 Sickle Cells Not Reportable 08/20/19 04:22 Target Cells Not Reportable 08/20/19 04:22 Tear Drop Cells Not Reportable 08/20/19 04:22 Ovalocytes Not Reportable 08/20/19 04:22 Helmet Cells Not Reportable 08/20/19 04:22 Shrestha-[place] Bodies Not Reportable 08/20/19 04:22 [place] Rings Not Reportable 08/20/19 04:22 Zoya Cells Not Reportable 08/20/19 04:22 Bite Cells Not Reportable 08/20/19 04:22 Crenated Cell Not Reportable 08/20/19 04:22 Elliptocytes Not Reportable 08/20/19 04:22 Acanthocytes (Spur) Not Reportable 08/20/19 04:22 Rouleaux Not Reportable 08/20/19 04:22 Hemoglobin C Crystals Not Reportable 08/20/19 04:22 Schistocytes Not Reportable 08/20/19 04:22 Malaria parasites Not Reportable 08/20/19 04:22 Joel Bodies Not Reportable 08/20/19 04:22 Hem Pathologist Commnt No 08/20/19 04:22 D-Dimer 738.56 ng/mlDDU (0-234) H 08/19/19 22:58 ABG pH 7.324 pH Units (7.350-7.450) L 08/19/19 23:30 ABG pCO2 56.8 mm Hg 08/19/19 23:30 ABG pO2 118.2 mm Hg (80.0-90.0) H 08/19/19 23:30 ABG HCO3 28.9 mmol/L (20.0-26.0) H 08/19/19 23:30 ABG O2 Saturation 98.0 % (95.0-99.0) 08/19/19 23:30 ABG O2 Content 17.2 (0.0-44) 08/19/19 23:30 ABG Base Excess 1.7 mmol/L (-2.0-3.0) 08/19/19 23:30 ABG Hemoglobin 12.6 gm/dl (12.0-16.0) 08/19/19 23:30 ABG Carboxyhemoglobin 1.3 % (0.0-5.0) 08/19/19 23:30 ABG Methemoglobin 0.6 % (0.0-1.5) 08/19/19 23:30 Oxyhemoglobin 96.1 % (95.0-99.0) 08/19/19 23:30 FiO2 28 % 08/19/19 23:30 Sodium 140 mmol/L (137-145) 08/20/19 04:22 Potassium 3.6 mmol/L (3.6-5.0) 08/20/19 04:22 Chloride 98.9 mmol/L (98-107) 08/20/19 04:22 Carbon Dioxide 26 mmol/L (22-30) 08/20/19 04:22 Anion Gap 19 mmol/L 08/20/19 04:22 BUN 11 mg/dL (7-17) 08/20/19 04:22 Creatinine 0.7 mg/dL (0.7-1.2) 08/20/19 04:22 Estimated GFR > 60 ml/min 08/20/19 04:22 BUN/Creatinine Ratio 16 % 08/20/19 04:22 Glucose 184 mg/dL (65-100) H 08/20/19 04:22 Calcium 9.1 mg/dL (8.4-10.2) 08/20/19 04:22 Total Bilirubin 0.20 mg/dL (0.1-1.2) 08/19/19 22:58 AST 21 units/L (5-40) 08/19/19 22:58 ALT 12 units/L (7-56) 08/19/19 22:58 Alkaline Phosphatase 95 units/L (35-129) 08/19/19 22:58 Troponin T < 0.010 ng/mL (0.00-0.029) 08/20/19 01:16 NT-Pro-B Natriuret Pep 37.33 pg/mL (0-900) 08/19/19 22:58 Total Protein 7.8 g/dL (6.3-8.2) 08/19/19 22:58 Albumin 4.2 g/dL (3.9-5) 08/19/19 22:58 Albumin/Globulin Ratio 1.2 % 08/19/19 22:58 Urine Color Yellow (Yellow) 08/21/19 05:28 Urine Turbidity Slightly cloudy (Clear) 08/21/19 05:28 Urine pH 5.0 (5.0-7.0) 08/21/19 05:28 Ur Specific [place] 1.029 (1.003-1.030) 08/21/19 05:28 Urine Protein 30 mg/dl mg/dL (Negative) 08/21/19 05:28 Urine Glucose (UA) Neg mg/dL (Negative) 08/21/19 05:28 Urine Ketones Tr mg/dL (Negative) 08/21/19 05:28 Urine Blood Neg (Negative) 08/21/19 05:28 Urine Nitrite Neg (Negative) 08/21/19 05:28 Urine Bilirubin Neg (Negative) 08/21/19 05:28 Urine Urobilinogen 2.0 mg/dL (<2.0) 08/21/19 05:28 Ur Leukocyte Esterase Neg (Negative) 08/21/19 05:28 Urine WBC (Auto) 3.0 /HPF (0.0-6.0) 08/21/19 05:28 Urine RBC (Auto) 1.0 /HPF (0.0-6.0) 08/21/19 05:28 U Epithel Cells (Auto) 1.0 /HPF (0-13.0) 08/21/19 05:28 Urine Mucus 3+ /HPF 08/21/19 05:28 Active Medications - Current Medications Current Medications: Generic Name Dose Route Start Last Admin Trade Name Freq PRN Reason Stop Dose Admin Acetaminophen 650 mg 08/20/19 03:43 08/20/19 19:36 Tylenol PO 650 mg Q4H PRN Administration Pain MILD(1-3)/Fever >100.5/MOSLEY Albuterol 2.5 mg 08/20/19 14:06 Proventil IH Q4HRT PRN Shortness Of Breath Albuterol/Ipratropium 1 ampul 08/20/19 20:00 08/21/19 20:26 Duoneb *Not For Prn Use* IH Not Given TIDRT [facility] Arformoterol Tartrate 15 mcg 08/20/19 20:00 08/21/19 20:26 Brovana Nebu IH Not Given Q12HRT [facility] Budesonide 0.5 mg 08/20/19 20:00 08/21/19 20:26 Pulmicort IH Not Given Q12HRT [facility] Enoxaparin Sodium 30 mg 08/20/19 10:00 08/21/19 11:02 Enoxaparin SUB-Q Not Given QDAY [facility] Famotidine 20 mg 08/21/19 10:00 08/21/19 11:00 Pepcid PO 20 mg QDAY [facility] Administration Levofloxacin 500 mg 08/21/19 10:00 08/21/19 11:00 Levaquin PO 08/24/19 10:01 500 mg Q24HR ARIELLA Administration Methylprednisolone Sodium Succinate 60 mg 08/21/19 00:00 08/22/19 00:35 Solu-Medrol IV 60 mg Q8HRT ARIELLA Administration Ondansetron HCl 4 mg 08/20/19 03:43 Zofran IV Q8H PRN Nausea And Vomiting Polyethylene Glycol 17 gm 08/21/19 09:13 Miralax 3350 PO QDAY PRN Constipation Sodium Chloride 10 ml 08/20/19 10:00 08/21/19 23:56 Sodium Chloride Flush Syringe 10 Ml IV 10 ml BID ARIELLA Administration Sodium Chloride 10 ml 08/20/19 03:43 Sodium Chloride Flush Syringe 10 Ml IV PRN PRN LINE FLUSH
[2019-08-22] MEDS: IPRATROPIUM/ALBUTEROL SULFATE 3 ML AMPUL.NEB IH SCH ×3 (10:25→19:13)
[2019-08-22] MEDS: levoFLOXacin 500 MG TAB PO SCH (11:16)
[2019-08-22] MEDS: ENOXAPARIN 30 MG/0.3 ML INJ SUB-Q SCH (11:16)
[2019-08-22] MEDS: FAMOTIDINE 20 MG TAB PO SCH (11:16)
--- NOTE | 2019-08-22 13:30 | Progress Note ---
Assessment and Plan Pt alert and awake, resting on 2 liters O2. O2 saturation 97%. Pt complaining of chest tightness. No acute respiratory distress at rest. Pt has a history of smoking 1 pack for 40 years, stopped 2 years ago. 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 Pt has a home O2. Pt is afebrile. No leukocytosis. Pt's last chest xray reported no acute findings and resolvment of pt's right upper lobe infiltrate. - Patient Problems (1) Acute respiratory failure with hypoxia and hypercapnia Current Visit: Yes Status: Acute Plan to address problem: O2 2 liters nasal cannula All albuteral and atrovent aerosal treatments q6hrs Continue IV solumedrol Continue levoquine Continue subq lovenox Contine famotadine (2) Acute bronchitis Current Visit: No Status: Acute Plan to address problem: Pt is on levoquin (3) COPD exacerbation Current Visit: Yes Status: Acute Plan to address problem: O2 2 liters nasal cannula All albuteral and atrovent aerosal treatments q6hrs Continue IV solumedrol Continue levoquine Continue subq lovenox Contine famotadine Recommend PFTs as an outpatient (4) Pneumonia Current Visit: No Status: Acute Qualifiers: Laterality: right Lung location: upper lobe of lung Plan to address problem: Pt treated with levoquin and lung infiltrate has resolved Subjective Date of service: 08/22/19 Principal diagnosis: AE-COPD; Ac hypoxemic & hypercapnic resp failure; Elevated D-dimer Interval history: Pt alert and awake, resting on 2 liters O2. O2 saturation 97%. Pt complaining of chest tightness. No acute respiratory distress at rest. Pt has a history of smoking 1 pack for 40 years, stopped 2 years ago. 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 Pt has a home O2. Pt is afebrile. No leukocytosis. Pt's last chest xray reported no acute findings and resolvment of pt's right upper lobe infiltrate. Objective Vital Signs - 12hr 08/22/19 08/22/19 08/22/19 03:48 06:00 07:51 Temperature 98.0 F 98.6 F Pulse Rate 94 H 85 85 Pulse Rate [ Bilateral] Respiratory 18 18 Rate Respiratory Rate [Bilateral ] Blood Pressure 117/84 129/79 O2 Sat by Pulse 98 95 Oximetry 08/22/19 08/22/19 08/22/19 10:20 10:25 11:06 Temperature 96.8 F L Pulse Rate 102 H Pulse Rate [ 110 H Bilateral] Respiratory 18 Rate Respiratory 17 Rate [Bilateral ] Blood Pressure 127/75 O2 Sat by Pulse 97 97 Oximetry Constitutional: no acute distress, alert Eyes: non-icteric ENT: oropharynx moist Neck: supple, no lymphadenopathy Effort: mildly labored Ascultation: Bilateral: diminished breath sounds, other (Prolonged expiratory phase) Cardiovascular: regular rate and rhythm Gastrointestinal: normoactive bowel sounds, soft, non-distended Integumentary: normal Extremities: no cyanosis, no edema Neurologic: normal mental status, non-focal exam Psychiatric: anxious CBC and BMP: 08/20/19 04:22 08/20/19 04:22 ABG, PT/INR, D-dimer: ABG ABG pH 7.324 pH Units (7.350-7.450) L 08/19/19 23:30 ABG pCO2 56.8 mm Hg 08/19/19 23:30 ABG pO2 118.2 mm Hg (80.0-90.0) H 08/19/19 23:30 ABG O2 Saturation 98.0 % (95.0-99.0) 08/19/19 23:30 PT/INR, D-dimer D-Dimer 738.56 ng/mlDDU (0-234) H 08/19/19 22:58 Abnormal lab findings: Abnormal Labs 08/19/19 08/19/19 08/19/19 22:58 22:58 22:58 RDW 16.2 H Eos % (Auto) 5.0 H Eos # 0.5 H Seg Neuts % (Manual) Lymphocytes % (Manual) Lymphocytes # (Manual) D-Dimer 738.56 H ABG pH ABG pO2 ABG HCO3 Potassium 3.3 L Creatinine 0.6 L Glucose 144 H Ur Specific [place] 08/19/19 08/20/19 08/20/19 23:30 04:22 04:22 RDW 16.0 H Eos % (Auto) Eos # Seg Neuts % (Manual) 95.0 H Lymphocytes % (Manual) 4.0 L Lymphocytes # (Manual) 0.2 L D-Dimer ABG pH 7.324 L ABG pO2 118.2 H ABG HCO3 28.9 H Potassium Creatinine Glucose 184 H Ur Specific [place] 08/20/19 13:30 RDW Eos % (Auto) Eos # Seg Neuts % (Manual) Lymphocytes % (Manual) Lymphocytes # (Manual) D-Dimer ABG pH ABG pO2 ABG HCO3 Potassium Creatinine Glucose Ur Specific [place] 1.035 H Chest x-ray: report reviewed (No acute findings. Right upper lobe infiltrate resolved.), image reviewed CT scan - chest: report reviewed, image reviewed Additional Studies: CTA of chest done on 08/20/19 IMPRESSION: 1. Negative for PTE. 2. Advanced emphysema with streaky right upper lobe airspace disease which may at least in part reflect atelectasis/scarring. 3. Incidental findings in the abdomen as detailed. Striated appearance of the kidneys can be seen with pyelonephritis--correlate with urinalysis findings.
[2019-08-23] MEDS: BUDESONIDE 0.5 MG/2 ML NEBU IH SCH (08:57)
[2019-08-23] MEDS: ARFORMOTEROL 15 MCG/2 ML NEBU IH SCH (08:57)
[2019-08-23] MEDS: IPRATROPIUM/ALBUTEROL SULFATE 3 ML AMPUL.NEB IH SCH ×2 (08:57→14:43)
[2019-08-23] MEDS: FAMOTIDINE 20 MG TAB PO SCH (10:19)
[2019-08-23] MEDS: levoFLOXacin 500 MG TAB PO SCH (10:20)
[2019-08-23] MEDS: methylPREDNISolone Sod Succinate 125 MG/2 ML INJ IV SCH (10:20)
[2019-08-23] MEDS: ENOXAPARIN 30 MG/0.3 ML INJ SUB-Q SCH (10:20)
--- NOTE | 2019-08-23 10:32 | Discharge Summary ---
Providers - Providers Date of Admission: 08/20/19 04:15 Date of discharge: 08/23/19 Attending physician: MENDOZA HUERTA 08/20/19 09:28 Consult to Physician [CONS] Routine Comment: Consulting Provider: GABBIE TAAVREZ Physician Instructions: Reason For Exam: resp failure,asthma,copd exac 08/22/19 10:25 Consult to Case Management [CONS] Routine Services Needed at Discharge: Other Notified:: cm notified Comment:: dc planning Primary care physician: [employer]NER Hospitalization Reason for admission: copd exac Condition: Stable Hospital course: 64 -year-old woman with a history of COPD , asthma presented to emergency room with complaints of shortness of breath. Symptoms started 2 days MACHINE HAND. Patient was placed on BiPAP, given steroids IV, nebulizer treatments. The patient was admitted for COPD exacerbation. The patient reported significant improvement throughout hospitalization. Patient has home O2 which will be continued at discharge. Patient is felt to receive maximal hospital benefit and will be discharged home. Dedicated discharge time 32 minutes. Disposition: DC-01 TO HOME OR SELFCARE Time spent for discharge: 32 - Discharge Diagnoses (1) Acute respiratory failure with hypoxia and hypercapnia Status: Acute (2) COPD exacerbation Status: Acute Core Measure Documentation - Palliative Care Palliative Care/ Comfort Measures: Not Applicable - Core Measures Any of the following diagnoses?: none Exam - Constitutional Vitals: Temp Pulse Resp BP Pulse Ox 98.0 F 100 H 18 97/67 98 08/23/19 04:26 08/23/19 09:00 08/23/19 09:00 08/23/19 04:26 08/23/19 09:00 General appearance: Present: no acute distress, well-nourished - EENT Eyes: Present: PERRL ENT: hearing intact, clear oral mucosa - Neck Neck: Present: supple, normal ROM - Respiratory Respiratory effort: normal Respiratory: bilateral: CTA - Cardiovascular Heart Sounds: Present: S1 & S2. Absent: rub, click - Extremities Extremities: pulses symmetrical, No edema Peripheral Pulses: within normal limits - Abdominal General gastrointestinal: Present: soft, non-tender, non-distended, normal bowel sounds Female genitourinary: Present: normal - Integumentary Integumentary: Present: clear, warm, dry - Musculoskeletal Musculoskeletal: gait normal, strength equal bilaterally - Psychiatric Psychiatric: appropriate mood/affect, intact judgment & insight - Neurologic Neurologic: CNII-XII intact, moves all extremities Plan Activity: no restrictions Weight Bearing Status: Weight Bear as Tolerated Diet: regular Follow up with: PRIMARY CARE, [Primary Care Provider] - 3-5 Days Prescriptions: Arformoterol Nebu [Brovana Nebu] 15 mcg IH Q12HR #7 day methylPREDNISolone [Medrol 4MG DOSEPAK (21 tabs)] 4 mg PO QAM #1 tab.ds.pk Albuterol INH(or & Nicu Only) [ProAir HFA Inhaler] 2 puff IH QID PRN #1 unit PRN Reason: Shortness Of Breath ALBUTEROL NEB's [Proventil 0.083% NEBS] 2.5 mg IH TID PRN #20 neb PRN Reason: Wheezing Budesonide [Pulmicort Respules] 0.5 mg IH Q12HR #7 day Tiotropium [Spiriva] 18 mcg IH QDAY #30 cap
[2019-08-23 12:13] VITALS: BP 145/83
--- NOTE | 2019-08-23 17:03 | Progress Note ---
Assessment and Plan Pt alert and awake, resting on 2 liters O2. O2 saturation 95%. No acute respiratory distress at rest. Pt has a history of smoking 1 pack for 40 years, stopped 2 years ago. She denies any alcohol or drug use. Pt has a home O2. Pt is afebrile. No leukocytosis. Pt's last chest xray reported no acute findings and resolvement of pt's right upper lobe infiltrate. Pt can go home from pulmonary point of view. Follow-up as an outpatient for pulmonary problems in 1-2 weeks. - Patient Problems (1) Acute respiratory failure with hypoxia and hypercapnia Current Visit: Yes Status: Acute Plan to address problem: O2 2 liters nasal cannula All albuteral and atrovent aerosal treatments q6hrs Continue IV solumedrol Continue levoquine Continue subq lovenox Contine famotadine (2) Acute bronchitis Current Visit: No Status: Acute Plan to address problem: Pt is on levoquin (3) COPD exacerbation Current Visit: Yes Status: Acute Plan to address problem: O2 2 liters nasal cannula All albuteral and atrovent aerosal treatments q6hrs Continue IV solumedrol Continue levoquine Continue subq lovenox Contine famotadine Recommend PFTs as an outpatient (4) Pneumonia Current Visit: No Status: Acute Qualifiers: Laterality: right Lung location: upper lobe of lung Plan to address problem: Pt treated with levoquin and lung infiltrate has resolved Subjective Date of service: 08/23/19 Principal diagnosis: AE-COPD; Ac hypoxemic & hypercapnic resp failure; Elevated D-dimer Interval history: Pt alert and awake, resting on 2 liters O2. O2 saturation 95%. No acute respiratory distress at rest. Pt has a history of smoking 1 pack for 40 years, stopped 2 years ago. She denies any alcohol or drug use. Pt has a home O2. Pt is afebrile. No leukocytosis. Pt's last chest xray reported no acute findings and resolvement of pt's right upper lobe infiltrate. Pt can go home from pulmonary point of view. Follow-up as an outpatient for pulmonary problems in 1-2 weeks. Objective Vital Signs - 12hr 08/23/19 08/23/19 09:00 11:25 Temperature 98.4 F Pulse Rate 97 H Pulse Rate [ 100 H Bilateral] Respiratory 20 Rate Respiratory 18 Rate [Bilateral ] Blood Pressure 145/83 O2 Sat by Pulse 98 95 Oximetry Constitutional: no acute distress, alert Eyes: non-icteric ENT: oropharynx moist Neck: supple, no lymphadenopathy Effort: mildly labored Ascultation: Bilateral: diminished breath sounds, other (Prolonged expiratory phase) Cardiovascular: regular rate and rhythm Gastrointestinal: normoactive bowel sounds, soft, non-distended Integumentary: normal Extremities: no cyanosis, no edema Neurologic: normal mental status, non-focal exam Psychiatric: anxious CBC and BMP: 08/20/19 04:22 08/20/19 04:22 ABG, PT/INR, D-dimer: ABG ABG pH 7.324 pH Units (7.350-7.450) L 08/19/19 23:30 ABG pCO2 56.8 mm Hg 08/19/19 23:30 ABG pO2 118.2 mm Hg (80.0-90.0) H 08/19/19 23:30 ABG O2 Saturation 98.0 % (95.0-99.0) 08/19/19 23:30 PT/INR, D-dimer D-Dimer 738.56 ng/mlDDU (0-234) H 08/19/19 22:58 Abnormal lab findings: Abnormal Labs 08/19/19 08/19/19 08/19/19 22:58 22:58 22:58 RDW 16.2 H Eos % (Auto) 5.0 H Eos # 0.5 H Seg Neuts % (Manual) Lymphocytes % (Manual) Lymphocytes # (Manual) D-Dimer 738.56 H ABG pH ABG pO2 ABG HCO3 Potassium 3.3 L Creatinine 0.6 L Glucose 144 H Ur Specific [place] 08/19/19 08/20/19 08/20/19 23:30 04:22 04:22 RDW 16.0 H Eos % (Auto) Eos # Seg Neuts % (Manual) 95.0 H Lymphocytes % (Manual) 4.0 L Lymphocytes # (Manual) 0.2 L D-Dimer ABG pH 7.324 L ABG pO2 118.2 H ABG HCO3 28.9 H Potassium Creatinine Glucose 184 H Ur Specific [place] 08/20/19 13:30 RDW Eos % (Auto) Eos # Seg Neuts % (Manual) Lymphocytes % (Manual) Lymphocytes # (Manual) D-Dimer ABG pH ABG pO2 ABG HCO3 Potassium Creatinine Glucose Ur Specific [place] 1.035 H
== END 2019-08-23 16:45 | disposition home or self-care (01) | DRG 189 ==
LOC: ED 22:28 → 4A 08-20 04:15 → 3A 08-22 15:40
PROVIDERS: ADMIT Internal Medicine; ATTEND Hospitalist
PROC: 5A09357 Assistance with Respiratory Ventilation, Less than 24 Consecutive Hours, Continuous Positive Airway Pressure (ICD-10-PCS; principal; 2019-08-19)
PROC: 4A033R1 Measurement of Arterial Saturation, Peripheral, Percutaneous Approach (ICD-10-PCS; 2019-08-19)
DX: J96.22 Acute and chronic respiratory failure with hypercapnia (principal); J18.9 Pneumonia, unspecified organism; J96.21 Acute and chronic respiratory failure with hypoxia; E87.6 Hypokalemia; J44.1 Chronic obstructive pulmonary disease with (acute) exacerbation; J20.9 Acute bronchitis, unspecified; J44.0 Chronic obstructive pulmonary disease with (acute) lower respiratory infection; J45.901 Unspecified asthma with (acute) exacerbation; E87.2 Acidosis; Z79.51 Long term (current) use of inhaled steroids; Z79.899 Other long term (current) drug therapy; Z87.891 Personal history of nicotine dependence; Z82.49 Family history of ischemic heart disease and other diseases of the circulatory system
CPT/HCPCS: 36415; 36600; 71045; 71275; 80048; 80053; 81001; 82803; 83880; 84484; 85007; 85025; 85379; 87040; 93005; 93010; 94640; 94644; 94760; G0378; J1650; J1956; J2405; J2930; Q9967